=== PATIENT | female | born 1950 | race Caucasian/White ===

== ENCOUNTER 2020-09-19 07:15 | Day surgery (SDC) | payer MEDICARE, OTHER ==
[~2020-09-19 07:15] MED LIST: acetaZOLAMIDE 500 MG Cap.ER PO ONE
[2020-09-19] MEDS ORDERED: fentaNYL 100 MCG/2 ML SDV IV ONE (07:16)
[2020-09-19] MEDS ORDERED: Sodium Chloride 0.9% 10 ML Syringe IV ONE (07:16)
[2020-09-19] MEDS ORDERED: Lidocaine 2% 5 ML SDV INJECT ONE (07:16)
[2020-09-19] MEDS ORDERED: Midazolam 1 MG/ML 2 ML SDV IV ONE (07:16)
[2020-09-19] MEDS ORDERED: Sodium Chloride 0.9% 10 ML Syringe FLUSH PRN (07:30)
[2020-09-19] MEDS ORDERED: Lactated Ringers 1,000 ML IV PRN (07:30)
[2020-09-19] MEDS ORDERED: acetaZOLAMIDE 500 MG Cap.ER PO ONE (09:30)
[2020-09-19 09:54] VITALS: PULSE 58
[2020-09-19 09:55] VITALS: BP 111/52
--- NOTE | 2020-09-20 09:57 | OR ---
DATE OF OPERATION: 09/19/2020 SURGEON: Iris Teixeira MD PREOPERATIVE DIAGNOSIS: Visually significant cataract, right eye. POSTOPERATIVE DIAGNOSIS: Visually significant cataract, right eye. PROCEDURES PERFORMED: Phacoemulsification with intraocular lens placement, right eye. ASSISTANTS: None. ANESTHESIA: Local with sedation. COMPLICATIONS: None. BLOOD LOSS: None. IMPLANTS: Tito preloaded ACU0T0 20.0 diopter lens implanted. CDE: 2.60. DESCRIPTION OF PROCEDURE: After risks and benefits were reviewed with the patient, consent was obtained in the preoperative area, and the operative eye was marked with a surgical pen. In the preoperative area, a pledget was used to dilate the pupil consisting of a mixture of phenylephrine 10%, cyclopentolate 2%, moxifloxacin 0.5%, and bupivacaine 0.75%. The patient was taken to the operating room, where a time-out was performed, and the patient was placed under monitored anesthesia care. Topical tetracaine was used for anesthesia. The operative eye was prepped and draped for ophthalmic surgery, and the microscope was brought into position and focused. A paracentesis incision was made, followed by injection of preservative-free 1% lidocaine into the anterior chamber, followed by injection of Viscoat into the anterior chamber. A microkeratome blade was used to make a corneal limbal incision temporally. A cystotome was used to make the beginning of the capsulorrhexis, which was carried around 360 degrees in a curvilinear fashion using Utrata forceps. A Pinon cannula with BSS was used to hydrodissect and hydrodelineate the nucleus. The nucleus was removed in a divide and conquer manner using phacoemulsification. Irrigation and aspiration were used to remove the remaining cortical material. Provisc was used to inflate the capsular bag, and a pre-loaded Tito ACU0T0 diopter lens, serial number [id number] was injected into the capsular bag. A Sinskey hook was used to position and center the lens. Next, irrigation and aspiration was used to remove any remaining viscoelastic and cortical material from the anterior chamber. BSS on a cannula was used to inflate the anterior chamber and hydrate the wound. The wound was checked and found to be watertight. 1 mg of Moxifloxacin was injected into the anterior chamber. Drapes were removed and the eye was cleaned. A drop of brimonidine 0.2% and a drop of TobraDex was placed. The eye was shielded, and the patient was taken to the recovery room in stable condition. /[id number] TICO/DIAMOND
== END 2020-09-19 10:00 | disposition home or self-care (01) ==
LOC: FB.SDS 07:15
PROVIDERS: ATTEND Ophthalmology
DX: H25.813 Combined forms of age-related cataract, bilateral (principal); H35.3131 Nonexudative age-related macular degeneration, bilateral, early dry stage; H40.013 Open angle with borderline findings, low risk, bilateral; H04.123 Dry eye syndrome of bilateral lacrimal glands; H02.831 Dermatochalasis of right upper eyelid; H02.834 Dermatochalasis of left upper eyelid; R73.03 Prediabetes; J44.9 Chronic obstructive pulmonary disease, unspecified; I10 Essential (primary) hypertension; E78.5 Hyperlipidemia, unspecified; N32.81 Overactive bladder; Z88.8 Allergy status to other drugs, medicaments and biological substances
CPT/HCPCS: 00142; 66984; A9270; J2250; J3010; V2632

== ENCOUNTER 2020-10-03 08:02 | Day surgery (SDC) | payer MEDICARE, OTHER ==
[~2020-10-03 08:02] MED LIST changes: +Lactated Ringers 1,000 ML IV PRN; +Sodium Chloride 0.9% 10 ML Syringe FLUSH PRN; -acetaZOLAMIDE 500 MG Cap.ER PO ONE
[2020-10-03] MEDS ORDERED: Lidocaine 2% 5 ML SDV IV ONE (08:03)
[2020-10-03] MEDS ORDERED: fentaNYL 100 MCG/2 ML SDV IV ONE (08:03)
[2020-10-03] MEDS ORDERED: Midazolam 1 MG/ML 2 ML SDV IV ONE (08:03)
[2020-10-03] MEDS ORDERED: acetaZOLAMIDE 500 MG Cap.ER PO ONE (10:00)
[2020-10-03 10:20] VITALS: BP 98/50; PULSE 65
--- NOTE | 2020-10-03 16:41 | OR ---
DATE OF OPERATION: 10/03/2020 SURGEON: Iris Teixeira MD PREOPERATIVE DIAGNOSIS: Visually significant cataract, left eye. POSTOPERATIVE DIAGNOSIS: Visually significant cataract, left eye. PROCEDURES PERFORMED: Phacoemulsification with intraocular lens placement, left eye. ASSISTANTS: None. ANESTHESIA: Local with sedation. COMPLICATIONS: None. BLOOD LOSS: None. IMPLANTS: Tito ACU0T0 19.5 diopter lens implanted. CDE: 3.62. DESCRIPTION OF PROCEDURE: After risks and benefits were reviewed with the patient, consent was obtained in the preoperative area, and the operative eye was marked with a surgical pen. In the preoperative area, a pledget was used to dilate the pupil consisting of a mixture of phenylephrine 10%, cyclopentolate 2%, moxifloxacin 0.5%, and bupivacaine 0.75%. The patient was taken to the operating room, where a time-out was performed, and the patient was placed under monitored anesthesia care. Topical tetracaine was used for anesthesia. The operative eye was prepped and draped for ophthalmic surgery, and the microscope was brought into position and focused. A paracentesis incision was made, followed by injection of preservative-free 1% lidocaine into the anterior chamber, followed by injection of Viscoat into the anterior chamber. A microkeratome blade was used to make a corneal limbal incision temporally. A cystotome was used to make the beginning of the capsulorrhexis, which was carried around 360 degrees in a curvilinear fashion using Utrata forceps. A Pinon cannula with BSS was used to hydrodissect and hydrodelineate the nucleus. The nucleus was removed in a divide and conquer manner using phacoemulsification. Irrigation and aspiration were used to remove the remaining cortical material. Provisc was used to inflate the capsular bag, and a pre-loaded Tito ACU0T0 19.5 diopter lens, serial number [id number] was injected into the capsular bag. A Sinskey hook was used to position and center the lens. Next, irrigation and aspiration was used to remove any remaining viscoelastic and cortical material from the anterior chamber. BSS on a cannula was used to inflate the anterior chamber and hydrate the wound. The wound was checked and found to be watertight. 1 mg of Moxifloxacin was injected into the anterior chamber. Drapes were removed and the eye was cleaned. A drop of brimonidine 0.2% and a drop of TobraDex was placed. The eye was shielded, and the patient was taken to the recovery room in stable condition. /[id number] TICO/DIAMOND
== END 2020-10-03 10:45 | disposition home or self-care (01) ==
LOC: FB.SDS 08:02
PROVIDERS: ATTEND Ophthalmology
DX: H25.813 Combined forms of age-related cataract, bilateral (principal); H35.3131 Nonexudative age-related macular degeneration, bilateral, early dry stage; H40.013 Open angle with borderline findings, low risk, bilateral; H04.123 Dry eye syndrome of bilateral lacrimal glands; H02.831 Dermatochalasis of right upper eyelid; H02.834 Dermatochalasis of left upper eyelid; J44.9 Chronic obstructive pulmonary disease, unspecified; R73.03 Prediabetes; F17.210 Nicotine dependence, cigarettes, uncomplicated; I10 Essential (primary) hypertension; E87.1 Hypo-osmolality and hyponatremia; N32.81 Overactive bladder; Z79.899 Other long term (current) drug therapy; Z88.8 Allergy status to other drugs, medicaments and biological substances
CPT/HCPCS: 00142-QZ; A9270-GY; J2250; J3010; V2632

== ENCOUNTER 2021-03-28 12:19 | Inpatient (IN) | payer MEDICARE, OTHER ==
[2021-03-28] MEDS ORDERED: Albuterol/Ipratropium 3.0-0.5 MG/3 ML Neb Soln NEB PRN (14:28)
[2021-03-28] MEDS: Acetaminophen 325 MG Tab PO PRN ×2 (14:59→21:33)
[2021-03-28] MEDS ORDERED: Albuterol 8 GM Inhaler *PTOM INH PRN (15:07)
[2021-03-28] MEDS: Levofloxacin/Dextrose 5%-Water 750 MG in Premix Bag 1 BAG IV SCH (15:56)
[2021-03-28] MEDS: Enoxaparin 40 MG/0.4 ML Syringe SUBCUT SCH (15:57)
--- NOTE | 2021-03-28 16:08 | PCM.HP.2 ---
H&P History of Present Illness - General Date of Service: 03/28/21 Admit Problem/Dx: Admission Diagnosis/Problem Admission Diagnosis/Problem Pneumonia Source of Information: Patient, Provider History Limitations: Reports: No Limitations - History of Present Illness Initial Comments - Free Text/Narative: Marleen presented to [facility] today with Dr Orozco for follow up recent discharge from [facility](03[facility]16[facility]03[facility]24) after being admitted to [facility](03/10-03/16) for UTI. She was discharged on Friday. When she presented to clinic today she had 101.2F, chills, shortness of breath. History of COPD, on continuous oxygen at home at 2L. Found in clinic to have left upper lobe pneumonia. Covid negative. WBC 27.4, Hgb 10.5. Na 129, K 4.1, Cl 90, CO2 28, BUN 10, Cr 0.7, Glucose 120; UA negative. Urine culture pending. Productive cough with green sputum was clear, uses Acapella device regularly at home. She states chills started today, doesn't have thermometer at home so didn't know she had a fever. Denies any nausea, vomiting, diarrhea. No dysuria, hematuria or frequency. States she has had decreased urination. Doesn't remember when she last had a bowel movement. She has some bruising from blood draws but no other rashes or wounds. CODE STATUS: DNR/DNI. Allergies from clinic aspirin(abdominal pain), patient stated she would like taken off her list as she takes an aspirin 81 mg daily and has not had issues with this. - Related Data Allergies/Adverse Reactions: Allergies Allergy/AdvReac Type Severity Reaction Status Date / Time No Known Allergies Allergy Verified 03/28/21 14:28 Home Medications: Home Meds Simvastatin [Zocor] 20 mg PO BEDTIME 12/13/15 [History] Albuterol [Ventolin HFA] 2 puff IH Q4H PRN 03/28/21 [History] Albuterol/Ipratropium [DuoNeb 3.0-0.5 MG/3 ML] 3 ml IH QID 03/28/21 [History] Aspirin [Halfprin] 81 mg PO DAILY 03/28/21 [History] Budesonide [Pulmicort] 0.5 mg IH BID 03/28/21 [History] Calcium Carbonate/Vitamin D3 [Calcium 600-Vit D3 200 Tablet] 1 tab PO DAILY 03/28/21 [History] Carboxymethylcellulose Sodium [Refresh Plus 0.5%] 1 drop EYEBOTH BID 03/28/21 [History] Metoprolol Succinate 50 mg PO DAILY 03/28/21 [History] Multivitamin [Daily Karla] 1 tab PO DAILY 03/28/21 [History] [place]-3 Fatty Acids/Fish Oil [Fish Oil 1,000 mg Capsule] 1 cap PO DAILY 03/28/21 [History] Revefenacin [Yupelri] 175 mcg IH BID 03/28/21 [History] lisinopriL [Lisinopril] 10 mg PO DAILY 03/28/21 [History] Past Medical History HEENT History: Reports: Glaucoma, Impaired Vision, Macular Degeneration, Other (See Below) Other HEENT History: CORNEAL DYSTROPHY, NUCLEAR SCLEROSIS, TONGUE SURGERY FOR TUMOR, NON MALIGNANT. Cardiovascular History: Reports: High Cholesterol, Hypertension Respiratory History: Reports: COPD, SOB, Other (See Below) Other Respiratory History: FREQUENT COUGH WITH SPUTUM PRODUCTION Gastrointestinal History: Reports: Colon Polyp Genitourinary History: Reports: Other (See Below) Other Genitourinary History: PT VOICED PROBLEMS WITH STRESS INCONT. AND WEARS PADS. GENERAL FARMWORK[employer] History: Reports: , Other (See Below) Other OB/BYN History: POST MENOPAUSAL; I PARA I Musculoskeletal History: Reports: Osteoarthritis Other Musculoskeletal History: torn right rotator cuff Neurological History: Reports: None Psychiatric History: Reports: None Other Psychiatric History: PATIENT STATES DOES NOT DRINK ANYMORE. UNABLE TO GIVE DATES WHEN QUIT. Endocrine/Metabolic History: Reports: Other (See Below) Other Endocrine/Metabolic History: HEPATITIS Hematologic History: Reports: Other (See Below) Other Hematologic History: HEPATITIS Immunologic History: Reports: None Oncologic (Cancer) History: Reports: None Dermatologic History: Reports: None - Infectious Disease History Infectious Disease History: Reports: Chicken Pox, Measles, Mumps - Past Surgical History Head Surgeries/Procedures: Reports: None HEENT Surgical History: Reports: Cataract Surgery Cardiovascular Surgical History: Reports: None Respiratory Surgical History: Reports: None GI Surgical History: Reports: Colonoscopy Other GI Surgeries/Procedures: TREATED FOR BILIARY JAUNDICE; RT ALCOHOL ABUSE ? 2012? Female Surgical History: Reports: None Endocrine Surgical History: Reports: None Neurological Surgical History: Reports: None Oncologic Surgical History: Reports: None Dermatological Surgical History: Reports: None Social & Family History - Family History Family Medical History: No Pertinent Family History - Tobacco Use Tobacco Use Status *Q: Former Tobacco User Used Tobacco, but Quit: Yes Month/Year Tobacco Last Used: 1979 Second Hand Smoke Exposure: No - Caffeine Use Caffeine Use: Reports: Soda - Recreational Drug Use Recreational Drug Use: No H&P Review of Systems - Review of Systems: Review Of Systems: Comprehensive ROS is negative, except as noted in HPI. Exam - Exam Exam: See Below - Vital Signs Vital Signs: Last Vital Signs Temp 100.4 F 03/28/21 15:29 Pulse Resp BP Pulse Ox Weight: 108 lb 8 oz - Exam Quality Assessment: Supplemental Oxygen (2L) General: Alert, Oriented, Cooperative HEENT: PERRLA, Conjunctiva Clear, EOMI, Hearing Intact, Mucosa Moist & [place] Neck: Trachea Midline Lungs: Decreased Breath Sounds (throughout). No: Normal Respiratory Effort (increased), Crackles, Rhonchi, Wheezing Cardiovascular: Regular Rate, Regular Rhythm GI/Abdominal Exam: Normal Bowel Sounds, Soft, Non-Tender, No Distention (Female) Exam: Deferred Rectal (Female) Exam: Deferred Extremities: No Pedal Edema, Normal Capillary Refill Peripheral Pulses: 2+: Radial (L), Radial (R), Posterior Tibial (L), Posterior Tibial (R), Dorsalis Pedis (L), Dorsalis Pedis (R) Skin: Ecchymosis (bilateral forearms) Neurological: Cranial Nerves Intact, Normal Speech, Normal Tone - Patient Data Lab Results Last 24 hrs: Laboratory Results - last 24 hr 03/28/21 Range/Units 14:50 Lactic Acid 0.9 (0.4-2.0) mmol/L Imaging Impressions Last 24 hrs: Chest x-ray(in clinic) showed left viry-hilar infiltrate, chronic emphysematous changes. EKG(in clinic): Sinus tachycardia with frequent PVCs, rate 101 bpm. Sepsis Event Note - Focused Exam Vital Signs: Vital Signs Temp 03/28/21 15:29 100.4 F 03/28/21 14:59 101 F H *Q Meaningful Use (ADM) - VTE Risk Assess *Q Each Risk Factor Represents 1 Point: Serious lung disease including pneumonia, Abnormal Pulmonary Function (COPD) Total Score 1 Point Risk Factors: 2 Each Risk Factor Represents 2 Points: Age 60 - 74 Years Total Score 2 Point Risk Factors: 2 Each Risk Factor Represents 3 Points: None Total Score 3 Point Risk Factors: 0 Each Risk Factor Represents 5 Points: None Total Score 5 Point Risk Factors: 0 Venous Thromboembolism Risk Factor Score *Q: 4 - Problem List (1) Hospital-acquired pneumonia SNOMED Code(s): 751980839 ICD Code: J18.9 - PNEUMONIA, UNSPECIFIED ORGANISM; Y95 - NOSOCOMIAL CONDITION Status: Acute Current Visit: Yes Problem Details: Recent hospitalization/rehab stay 03/10-03/24 (2) Fever SNOMED Code(s): 938318216 ICD Code: R50.9 - FEVER, UNSPECIFIED Status: Acute Current Visit: Yes (3) Hyponatremia SNOMED Code(s): 64061055 ICD Code: E87.1 - HYPO-OSMOLALITY AND HYPONATREMIA Status: Acute Current Visit: Yes (4) COPD (chronic obstructive pulmonary disease) SNOMED Code(s): 05244840 ICD Code: J44.9 - CHRONIC OBSTRUCTIVE PULMONARY DISEASE, UNSPECIFIED Status: Chronic Current Visit: Yes Problem Details: on home O2 at 2L continuous (5) Hypertension SNOMED Code(s): 07100905 ICD Code: I10 - ESSENTIAL (PRIMARY) HYPERTENSION Status: Chronic Current Visit: Yes (6) Dyslipidemia SNOMED Code(s): 490444295 ICD Code: E78.5 - HYPERLIPIDEMIA, UNSPECIFIED Status: Chronic Current Visit: Yes Problem List Initiated/Reviewed/Updated: Yes Orders Last 24hrs: Active Orders 24 hr Category Date Time Status Patient Status [ADT] Routine ADT 03/28/21 14:28 Active Communication Order [RC] PER UNIT ROUTINE Care 03/28/21 14:28 Active Oxygen Therapy [RC] PRN Care 03/28/21 14:28 Active RT Aerosol Therapy [RC] ASDIRECTED Care 03/28/21 15:08 Active RT Aerosol Therapy [RC] ASDIRECTED Care 03/28/21 15:08 Active RT Post Treatment Assessment [RC] Click to Edit Care 03/28/21 15:08 Active Up With Assistance [RC] ASDIRECTED Care 03/28/21 14:28 Active Up to Chair [RC] ASDIRECTED Care 03/28/21 14:28 Active VTE/DVT Education [RC] Per Unit Routine Care 03/28/21 14:28 Active Vital Signs [RC] Q4H Care 03/28/21 14:28 Active Regular Diet [DIET] Diet 03/28/21 Dinner Active BASIC METABOLIC PANEL,BMP [CHEM] Routine Lab 03/29/21 06:00 Ordered CBC WITH AUTO DIFF [HEME] Routine Lab 03/29/21 06:00 Ordered CULTURE BLOOD [BC] Urgent Lab 03/28/21 14:50 Received CULTURE BLOOD [BC] Urgent Lab 03/28/21 14:55 Received CULTURE SPUTUM + SMEAR [RM] Stat Lab 03/28/21 15:25 Received INFLUENZA A+B AG SCREEN [RM] Urgent Lab 03/28/21 14:28 Ordered Acetaminophen [TylenoL] Med 03/28/21 14:28 Active 650 mg PO Q4H PRN Albuterol [Ventolin HFA] Med 03/28/21 15:30 Active 0 gm INH Q4H PRN Albuterol/Ipratropium [DuoNeb 3.0-0.5 MG/3 ML] Med 03/28/21 17:00 Active 3 ml NEB QID Budesonide [Pulmicort] Med 03/28/21 21:00 Active 0.5 mg NEB BID Carboxymethylcellulose Sodium [Refresh Plus 0.5%] Med 03/28/21 21:00 Active 1 drop EYEBOTH BID Enoxaparin [Lovenox] Med 03/28/21 16:00 Active 40 mg SUBCUT Q24H Ibuprofen [Motrin] Med 03/28/21 14:28 Active 400 mg PO Q6H PRN Levofloxacin/Dextrose 5%-Water [Levaquin in D5W 750 MG/ Med 03/28/21 14:30 Active 150 ML] 750 mg Premix Bag 1 bag IV Q24H Metoprolol Succinate [Toprol XL] Med 03/29/21 09:00 Active 50 mg PO DAILY Revefenacin [Yupelri] Med 03/28/21 21:00 Pending 175 mcg IH BID Simvastatin [Zocor] Med 03/28/21 21:00 Active 20 mg PO BEDTIME Sodium Chloride 0.9% [Normal Saline] 1,000 ml Med 03/28/21 15:15 Active IV ASDIRECTED Sodium Chloride 0.9% [Saline Flush] Med 03/28/21 14:28 Active 10 ml FLUSH ASDIRECTED PRN lisinopriL [Prinivil] Med 03/29/21 09:00 Active 10 mg PO DAILY Antiembolic Hose [OM.PC] Per Unit Routine Oth 03/28/21 14:29 Ordered Blood Culture x2 Reflex Set [OM.PC] Urgent Oth 03/28/21 14:28 Ordered Isolation [COMM] Routine Oth 03/28/21 14:34 Ordered Saline Lock Insert [OM.PC] Routine Oth 03/28/21 14:28 Ordered Resuscitation Status Routine Resus Stat 03/28/21 14:28 Ordered Medication Orders Acetaminophen (Acetaminophen 325 Mg Tab) 650 mg PO Q4H PRN PRN Reason: Pain (Mild 1-3)/fever Last Admin: 03/28/21 14:59 Dose: 650 mg Documented by: JANETH Albuterol (Albuterol 8 Gm Inhaler *Ptom*) 0 gm INH Q4H PRN PRN Reason: Shortness of Breath Albuterol/Ipratropium (Albuterol/Ipratropium 3.0-0.5 Mg/3 Ml Neb Soln) 3 ml NEB QID [place] Budesonide (Budesonide 0.5 Mg/2 Ml Neb Susp) 0.5 mg NEB BID [place] Enoxaparin Sodium (Enoxaparin 40 Mg/0.4 Ml Syringe) 40 mg SUBCUT Q24H [facility] Last Admin: 03/28/21 15:57 Dose: 40 mg Documented by: JANETH Levofloxacin/Dextrose 750 mg/ (Premix) 150 mls @ 100 mls/hr IV Q24H [facility] Last Admin: 03/28/21 15:56 Dose: 100 mls/hr Documented by: JANETH Sodium Chloride (Normal Saline) 1,000 mls @ 75 mls/hr IV ASDIRECTED [place] Ibuprofen (Ibuprofen 400 Mg Tab) 400 mg PO Q6H PRN PRN Reason: Pain/Fever Lisinopril (Lisinopril 10 Mg Tab) 10 mg PO DAILY [facility] Metoprolol Succinate (Metoprolol Succinate 50 Mg Tab.Er) 50 mg PO DAILY [facility] Refresh Plus 0.5% 30 (Each *Ptom*) 1 drop EYEBOTH BID [facility] Non-Formulary Medication (Revefenacin [Yupelri]) 175 mcg IH BID [facility] Simvastatin (Simvastatin 20 Mg Tab) 20 mg PO BEDTIME [place] Sodium Chloride (Sodium Chloride 0.9% 10 Ml Syringe) 10 ml FLUSH ASDIRECTED PRN PRN Reason: Keep Vein Open Assessment/Plan Comment:: 1. Direct admission for hospital acquired left upper lobe pneumonia, hyponatremia, fever. 2. HAP/fever: WBC 27.4, BC x 2, Lactic acid 0.9. Levofloxacin 750 mg IV q24h. Continue home nebs & inhalers. Continue Acapella q1hwa, patient brought her home one with her. Repeat labs tomorrow. Oxygen by nc at 2L continuous. Sputum culture. Tylenol & Ibuprofen as needed fever. 3. Hyponatremia: NS at 75 ml/hr, repeat BMP tomorrow. 4. Diet: Regular. 5. Activity: as tolerated, up to chair tid. 6. DVT prophylaxis: Lovenox 40 mg sq daily. Teds BLE 7. CODE STATUS: DNR/DNI. 8. Disposition: anticipate 48-72 hours of IV antibiotics, switch to oral prior to discharge. - Mortality Measure Prognosis:: Poor
[2021-03-28] MEDS: Albuterol/Ipratropium 3.0-0.5 MG/3 ML Neb Soln NEB SCH ×2 (16:10→20:50)
[2021-03-28] MEDS: Sodium Chloride 0.9% 1,000 ML IV SCH (17:52)
[2021-03-28] MEDS ORDERED: Lidocaine 4% 1 each Patch TOP PRN (20:01)
[2021-03-28] MEDS: REFRESH PLUS EYEBOTH SCH (20:49)
[2021-03-28] MEDS: Simvastatin 20 MG Tab PO SCH (20:50)
[2021-03-28] MEDS: Budesonide 0.5 MG/2 ML Neb Susp NEB SCH (20:50)
[2021-03-29] MEDS: Ibuprofen 400 MG Tab PO PRN ×2 (05:39→20:51)
[2021-03-29] MEDS: Sodium Chloride 0.9% 1,000 ML IV SCH (07:44)
[2021-03-29] MEDS: REFRESH PLUS EYEBOTH SCH ×2 (08:22→20:43)
[2021-03-29] MEDS: Lisinopril 10 MG Tab PO SCH (08:22)
[2021-03-29] MEDS: Albuterol/Ipratropium 3.0-0.5 MG/3 ML Neb Soln NEB SCH ×4 (08:22→20:43)
[2021-03-29] MEDS: Budesonide 0.5 MG/2 ML Neb Susp NEB SCH ×2 (08:23→20:43)
[2021-03-29] MEDS: Metoprolol Succinate 50 MG Tab.ER PO SCH (08:23)
[2021-03-29] MEDS ORDERED: tiZANidine 4 MG Tab PO PRN (13:21)
[2021-03-29] MEDS: Levofloxacin/Dextrose 5%-Water 750 MG in Premix Bag 1 BAG IV SCH (14:39)
--- NOTE | 2021-03-29 15:20 | PCM.PN ---
- General Info Date of Service: 03/29/21 Subjective Update: Having neb treatment this morning. No fevers today, had fevers on admission. Having productive cough, sputum culture sent. Blood cultures pending. Urine culture no growth. - Patient Data Vitals - Most Recent: Last Vital Signs Temp 98.8 F 03/29/21 08:21 Pulse 96 03/29/21 08:23 Resp 22 H 03/29/21 08:21 BP 104/44 L 03/29/21 08:23 Pulse Ox 97 03/29/21 08:21 Weight - Most Recent: 108 lb 8 oz I&O - Last 24 Hours: Intake & Output 03/29/21 03/29/21 03/29/21 06:59 14:59 22:59 Intake Total 448 Balance 448 Lab Results Last 24 Hours: Laboratory Results - last 24 hr 03/28/21 03/29/21 03/29/21 Range/Units 14:50 06:35 06:35 WBC 21.2 H (3.0-10.3) x10-3/uL RBC 2.99 L (3.60-5.20) x10(6)uL Hgb 8.6 L (11.4-15.5) g/dL Hct 26.5 L (34.2-48.2) % MCV 88.7 (76.7-100.5) fL MCH 28.8 (23.9-33.9) pg MCHC 32.4 (31.9-34.8) g/dL RDW 14.5 (12.3-16.5) % Plt Count 169 (151-488) x10(3)uL MPV 7.9 (7.1-12.4) fL Add Manual Diff Yes Neutrophils % (Manual) 90 H (46-82) % Band Neutrophils % 5 (0-6) % Lymphocytes % (Manual) 2 L (13-37) % Monocytes % (Manual) 1 L (4-12) % Metamyelocytes % 1 H (0-0) % Myelocytes % 1 H (0-0) % Toxic Granulation Moderate H (NOT SEEN) Sodium 129 L (135-145) mmol/L Potassium 4.1 (3.5-5.3) mmol/L Chloride 95 L (100-110) mmol/L Carbon Dioxide 25 (21-32) mmol/L BUN 10 (7-18) mg/dL Creatinine 0.8 (0.55-1.02) mg/dL Est Cr Clr Drug Dosing 52.29 mL/min Estimated GFR (MDRD) > 60 (>60) BUN/Creatinine Ratio 12.5 (9-20) Glucose 129 H (80-116) mg/dL Lactic Acid 0.9 (0.4-2.0) mmol/L Calcium 7.4 L (8.6-10.2) mg/dL Ramy Results Last 24 Hours: Microbiology 03/28/21 14:50 Aerobic Blood Culture - Preliminary Blood - Venous NO GROWTH AFTER 1 DAY Anaerobic Blood Culture - Preliminary NO GROWTH AFTER 1 DAY 03/28/21 14:55 Aerobic Blood Culture - Preliminary Blood - Venous - Lab Draw NO GROWTH AFTER 1 DAY Anaerobic Blood Culture - Preliminary NO GROWTH AFTER 1 DAY 03/28/21 17:45 Influenza Type A Antigen Screen - Final Nasopharyngeal Swab NEGATIVE INFLUENZA A VIRUS AG REFERENCE RANGE: NEGATIVE Influenza Type B Antigen Screen - Final NEGATIVE INFLUENZA B VIRUS AG REFERENCE RANGE: NEGATIVE Med Orders - Current: Current Medications Acetaminophen (Acetaminophen 325 Mg Tab) 650 mg PO Q4H PRN PRN Reason: Pain (Mild 1-3)/fever Last Admin: 03/28/21 21:33 Dose: 650 mg Documented by: Albuterol (Albuterol 8 Gm Inhaler *Ptom*) 0 gm INH Q4H PRN PRN Reason: Shortness of Breath Albuterol/Ipratropium (Albuterol/Ipratropium 3.0-0.5 Mg/3 Ml Neb Soln) 3 ml NEB QID [facility] Last Admin: 03/29/21 12:59 Dose: 3 ml Documented by: Budesonide (Budesonide 0.5 Mg/2 Ml Neb Susp) 0.5 mg NEB BID [facility] Last Admin: 03/29/21 08:23 Dose: 0.5 mg Documented by: Enoxaparin Sodium (Enoxaparin 40 Mg/0.4 Ml Syringe) 40 mg SUBCUT Q24H [facility] Last Admin: 03/28/21 15:57 Dose: 40 mg Documented by: Levofloxacin/Dextrose 750 mg/ (Premix) 150 mls @ 100 mls/hr IV Q24H [facility] Last Admin: 03/29/21 14:39 Dose: 100 mls/hr Documented by: Sodium Chloride (Normal Saline) 1,000 mls @ 75 mls/hr IV ASDIRECTED [facility] Last Admin: 03/29/21 07:44 Dose: 75 mls/hr Documented by: Ibuprofen (Ibuprofen 400 Mg Tab) 400 mg PO Q6H PRN PRN Reason: Pain/Fever Last Admin: 03/29/21 05:39 Dose: 400 mg Documented by: Lidocaine (Lidocaine 4% 1 Each Patch) 0 each TOP DAILY PRN PRN Reason: Pain Last Admin: 03/28/21 21:10 Dose: 1 each Documented by: Lisinopril (Lisinopril 10 Mg Tab) 10 mg PO DAILY [facility] Last Admin: 03/29/21 08:22 Dose: 10 mg Documented by: Metoprolol Succinate (Metoprolol Succinate 50 Mg Tab.Er) 50 mg PO DAILY [facility] Last Admin: 03/29/21 08:23 Dose: 50 mg Documented by: Refresh Plus 0.5% 30 (Each *Ptom*) 1 drop EYEBOTH BID [facility] Last Admin: 03/29/21 08:22 Dose: 1 drop Documented by: (Revefenacin [ Yupelri] 175 Mcg)* Pt Own Med* 0 each INH DAILY [facility] Last Admin: 03/29/21 08:26 Dose: 1 each Documented by: Simvastatin (Simvastatin 20 Mg Tab) 20 mg PO BEDTIME [facility] Last Admin: 03/28/21 20:50 Dose: 20 mg Documented by: Sodium Chloride (Sodium Chloride 0.9% 10 Ml Syringe) 10 ml FLUSH ASDIRECTED PRN PRN Reason: Keep Vein Open Tizanidine HCl (Tizanidine 4 Mg Tab) 4 mg PO Q6H PRN PRN Reason: Muscle Spasm - Painful Last Admin: 03/29/21 14:45 Dose: 4 mg Documented by: Discontinued Medications Albuterol (Albuterol 8 Gm Inhaler *Ptom*) 0 gm INH Q4H PRN PRN Reason: Shortness of Breath Albuterol/Ipratropium (Albuterol/Ipratropium 3.0-0.5 Mg/3 Ml Neb Soln) 3 ml NEB Q4H PRN PRN Reason: Shortness Of Breath/wheezing Non-Formulary Medication (Revefenacin [Yupelri]) 175 mcg IH BID [facility] (Revefenacin [ Yupelri] 175 Mcg)* Pt Own Med* 0 each INH ONETIME ONE Stop: 03/28/21 21:31 Last Admin: 03/28/21 21:11 Dose: 1 each Documented by: - Exam Quality Assessment: Supplemental Oxygen General: Alert, Oriented, Cooperative, No Acute Distress Lungs: Normal Respiratory Effort, Decreased Breath Sounds (throughout), Wheezing (bibasilar). No: Crackles, Rales, Rhonchi Cardiovascular: Regular Rate, Regular Rhythm GI/Abdominal Exam: Normal Bowel Sounds, Soft, Non-Tender, No Distention Extremities: No Pedal Edema - Patient Data Lab Results Last 24 hrs: Laboratory Results - last 24 hr 03/28/21 03/29/21 03/29/21 Range/Units 14:50 06:35 06:35 WBC 21.2 H (3.0-10.3) x10-3/uL RBC 2.99 L (3.60-5.20) x10(6)uL Hgb 8.6 L (11.4-15.5) g/dL Hct 26.5 L (34.2-48.2) % MCV 88.7 (76.7-100.5) fL MCH 28.8 (23.9-33.9) pg MCHC 32.4 (31.9-34.8) g/dL RDW 14.5 (12.3-16.5) % Plt Count 169 (151-488) x10(3)uL MPV 7.9 (7.1-12.4) fL Add Manual Diff Yes Neutrophils % (Manual) 90 H (46-82) % Band Neutrophils % 5 (0-6) % Lymphocytes % (Manual) 2 L (13-37) % Monocytes % (Manual) 1 L (4-12) % Metamyelocytes % 1 H (0-0) % Myelocytes % 1 H (0-0) % Toxic Granulation Moderate H (NOT SEEN) Sodium 129 L (135-145) mmol/L Potassium 4.1 (3.5-5.3) mmol/L Chloride 95 L (100-110) mmol/L Carbon Dioxide 25 (21-32) mmol/L BUN 10 (7-18) mg/dL Creatinine 0.8 (0.55-1.02) mg/dL Est Cr Clr Drug Dosing 52.29 mL/min Estimated GFR (MDRD) > 60 (>60) BUN/Creatinine Ratio 12.5 (9-20) Glucose 129 H (80-116) mg/dL Lactic Acid 0.9 (0.4-2.0) mmol/L Calcium 7.4 L (8.6-10.2) mg/dL Result Diagrams: 03/29/21 06:35 03/29/21 06:35 Ramy Results Last 24 hrs: Microbiology 03/28/21 14:50 Aerobic Blood Culture - Preliminary Blood - Venous NO GROWTH AFTER 1 DAY Anaerobic Blood Culture - Preliminary NO GROWTH AFTER 1 DAY 03/28/21 14:55 Aerobic Blood Culture - Preliminary Blood - Venous - Lab Draw NO GROWTH AFTER 1 DAY Anaerobic Blood Culture - Preliminary NO GROWTH AFTER 1 DAY 03/28/21 17:45 Influenza Type A Antigen Screen - Final Nasopharyngeal Swab NEGATIVE INFLUENZA A VIRUS AG REFERENCE RANGE: NEGATIVE Influenza Type B Antigen Screen - Final NEGATIVE INFLUENZA B VIRUS AG REFERENCE RANGE: NEGATIVE Sepsis Event Note - Evaluation Sepsis Screening Result: No Definite Risk - Focused Exam Vital Signs: Vital Signs Temp Pulse Pulse Resp BP BP Pulse Ox 03/29/21 08:23 96 104/44 L 03/29/21 08:22 104/44 L 03/29/21 08:21 98.8 F 96 22 H 104/44 L 97 03/29/21 04:00 99.2 F 83 20 117/61 96 - Problem List & Annotations (1) Hospital-acquired pneumonia SNOMED Code(s): 045407071 Code(s): J18.9 - PNEUMONIA, UNSPECIFIED ORGANISM; Y95 - NOSOCOMIAL CONDITION Status: Acute Current Visit: Yes Annotation/Comment:: Recent hospitali zation/rehab stay 03/10-03/24 (2) Fever SNOMED Code(s): 877952757 Code(s): R50.9 - FEVER, UNSPECIFIED Status: Resolved Current Visit: Yes (3) Hyponatremia SNOMED Code(s): 36991247 Code(s): E87.1 - HYPO-OSMOLALITY AND HYPONATREMIA Status: Acute Current Visit: Yes Annotation/Comment:: stable at 129. (4) COPD (chronic obstructive pulmonary disease) SNOMED Code(s): 00400703 Code(s): J44.9 - CHRONIC OBSTRUCTIVE PULMONARY DISEASE, UNSPECIFIED Status: Chronic Current Visit: Yes Annotation/Comment:: on home O2 at 2L continuous (5) Hypertension SNOMED Code(s): 76602744 Code(s): I10 - ESSENTIAL (PRIMARY) HYPERTENSION Status: Chronic Current Visit: Yes (6) Dyslipidemia SNOMED Code(s): 624827149 Code(s): E78.5 - HYPERLIPIDEMIA, UNSPECIFIED Status: Chronic Current Visit: Yes - Problem List Review Problem List Initiated/Reviewed/Updated: Yes - My Orders Last 24 Hours: My Active Orders 03/28/21 14:28 Patient Status [ADT] Routine Communication Order [RC] PER UNIT ROUTINE Oxygen Therapy [RC] PRN Up to Chair [RC] ASDIRECTED VTE/DVT Education [RC] Per Unit Routine Vital Signs [RC] Q4H Acetaminophen [TylenoL] 650 mg PO Q4H PRN Ibuprofen [Motrin] 400 mg PO Q6H PRN Sodium Chloride 0.9% [Saline Flush] 10 ml FLUSH ASDIRECTED PRN Blood Culture x2 Reflex Set [OM.PC] Urgent Saline Lock Insert [OM.PC] Routine Resuscitation Status Routine 03/28/21 14:29 Antiembolic Hose [OM.PC] Per Unit Routine 03/28/21 14:30 Levofloxacin/Dextrose 5%-Water [Levaquin in D5W 750 MG/150 ML] 750 mg Premix Bag 1 bag IV Q24H 03/28/21 14:34 Isolation [COMM] Routine 03/28/21 14:50 CULTURE BLOOD [BC] Urgent 03/28/21 14:55 CULTURE BLOOD [BC] Urgent 03/28/21 15:08 RT Aerosol Therapy [RC] ASDIRECTED 03/28/21 15:15 Sodium Chloride 0.9% [Normal Saline] 1,000 ml IV ASDIRECTED 03/28/21 15:25 CULTURE SPUTUM + SMEAR [RM] Stat 03/28/21 15:30 Albuterol [Ventolin HFA] 0 gm INH Q4H PRN 03/28/21 16:00 Enoxaparin [Lovenox] 40 mg SUBCUT Q24H 03/28/21 Dinner Regular Diet [DIET] 03/28/21 16:22 Communication Order [RC] Q1HWA 03/28/21 16:24 Up ad Deb [RC] ASDIRECTED 03/28/21 17:00 Albuterol/Ipratropium [DuoNeb 3.0-0.5 MG/3 ML] 3 ml NEB QID 03/28/21 20:01 Lidocaine 4% [Aspercreme 4%] 0 each TOP DAILY PRN 03/28/21 21:00 Budesonide [Pulmicort] 0.5 mg NEB BID Carboxymethylcellulose Sodium [Refresh Plus 0.5%] 1 drop EYEBOTH BID Simvastatin [Zocor] 20 mg PO BEDTIME 03/29/21 09:00 Metoprolol Succinate [Toprol XL] 50 mg PO DAILY Patient's Own Medication [Ptom] 0 each INH DAILY lisinopriL [Prinivil] 10 mg PO DAILY 03/29/21 13:21 tiZANidine [Zanaflex] 4 mg PO Q6H PRN - Plan Plan:: 1. HAP/fever: WBC 21.2, BC pending. Levofloxacin 750 mg IV q24h day 2. Continue home nebs & inhalers. Continue Acapella q1hwa, patient brought her home one with her. Repeat labs tomorrow. Oxygen by ne at 2L continuous. Sputum culture grew gram negative bacilli. Tylenol & Ibuprofen as needed fever. 2. Hyponatremia: 129, states she drinks a lot of water. Will saline lock, repeat BMP tomorrow. 3. Neck pain/spasm: Tizanidine 4 mg as needed. Lidocaine patches as needed.
[2021-03-29] MEDS: Enoxaparin 40 MG/0.4 ML Syringe SUBCUT SCH (17:00)
[2021-03-29] MEDS: Simvastatin 20 MG Tab PO SCH (20:43)
[2021-03-30] MEDS: Budesonide 0.5 MG/2 ML Neb Susp NEB SCH ×2 (09:25→20:12)
[2021-03-30] MEDS: Acetaminophen 325 MG Tab PO PRN (09:26)
[2021-03-30] MEDS: Ibuprofen 400 MG Tab PO PRN ×2 (09:26→20:12)
[2021-03-30] MEDS: Albuterol/Ipratropium 3.0-0.5 MG/3 ML Neb Soln NEB SCH ×4 (09:35→20:12)
[2021-03-30] MEDS: Lisinopril 10 MG Tab PO SCH (09:35)
[2021-03-30] MEDS: REFRESH PLUS EYEBOTH SCH ×2 (09:36→20:12)
[2021-03-30] MEDS: Metoprolol Succinate 50 MG Tab.ER PO SCH (09:36)
[2021-03-30] MEDS: guaiFENesin 600 MG Tab.ER PO SCH ×2 (10:42→20:12)
[2021-03-30] MEDS: predniSONE 20 MG Tab PO SCH (10:43)
--- NOTE | 2021-03-30 13:09 | PCM.PN ---
- General Info Date of Service: 03/30/21 Subjective Update: Marleen is having some chest soreness from coughing so much, getting a lot of sputum up. Chilled today, temp 100.5F. Eating and drinking well. BM, formed. Sputum culture growing gram negative bacilli. - Patient Data Vitals - Most Recent: Last Vital Signs Temp 99.8 F 03/30/21 10:26 Pulse 95 03/30/21 09:36 Resp 18 03/30/21 05:45 BP 152/70 H 03/30/21 09:36 Pulse Ox 98 03/30/21 05:45 Weight - Most Recent: 108 lb 8 oz Lab Results Last 24 Hours: Laboratory Results - last 24 hr 03/30/21 03/30/21 Range/Units 08:30 08:30 WBC 15.5 H (3.0-10.3) x10-3/uL RBC 3.28 L (3.60-5.20) x10(6)uL Hgb 9.6 L (11.4-15.5) g/dL Hct 28.9 L (34.2-48.2) % MCV 88.3 (76.7-100.5) fL MCH 29.2 (23.9-33.9) pg MCHC 33.1 (31.9-34.8) g/dL RDW 14.5 (12.3-16.5) % Plt Count 201 (151-488) x10(3)uL MPV 7.9 (7.1-12.4) fL Add Manual Diff Yes Neutrophils % (Manual) 86 H (46-82) % Lymphocytes % (Manual) 7 L (13-37) % Monocytes % (Manual) 7 (4-12) % Toxic Granulation Few H (NOT SEEN) Sodium 131 L (135-145) mmol/L Potassium 4.3 (3.5-5.3) mmol/L Chloride 97 L (100-110) mmol/L Carbon Dioxide 28 (21-32) mmol/L BUN 7 (7-18) mg/dL Creatinine 0.9 (0.55-1.02) mg/dL Est Cr Clr Drug Dosing 46.48 mL/min Estimated GFR (MDRD) > 60 (>60) BUN/Creatinine Ratio 7.8 L (9-20) Glucose 129 H (80-116) mg/dL Calcium 7.8 L (8.6-10.2) mg/dL Ramy Results Last 24 Hours: Microbiology 03/28/21 14:50 Aerobic Blood Culture - Preliminary Blood - Venous NO GROWTH AFTER 1 DAY Anaerobic Blood Culture - Preliminary NO GROWTH AFTER 1 DAY 03/28/21 14:55 Aerobic Blood Culture - Preliminary Blood - Venous - Lab Draw NO GROWTH AFTER 1 DAY Anaerobic Blood Culture - Preliminary NO GROWTH AFTER 1 DAY Med Orders - Current: Current Medications Acetaminophen (Acetaminophen 325 Mg Tab) 650 mg PO Q4H PRN PRN Reason: Pain (Mild 1-3)/fever Last Admin: 03/30/21 09:26 Dose: 650 mg Documented by: Albuterol (Albuterol 8 Gm Inhaler *Ptom*) 0 gm INH Q4H PRN PRN Reason: Shortness of Breath Albuterol/Ipratropium (Albuterol/Ipratropium 3.0-0.5 Mg/3 Ml Neb Soln) 3 ml NEB QID [facility] Last Admin: 03/30/21 09:35 Dose: 3 ml Documented by: Budesonide (Budesonide 0.5 Mg/2 Ml Neb Susp) 0.5 mg NEB BID [facility] Last Admin: 03/30/21 09:25 Dose: 0.5 mg Documented by: Enoxaparin Sodium (Enoxaparin 40 Mg/0.4 Ml Syringe) 40 mg SUBCUT Q24H [facility] Last Admin: 03/29/21 17:00 Dose: 40 mg Documented by: Guaifenesin (Guaifenesin 600 Mg Tab.Er) 600 mg PO BID [facility] Last Admin: 03/30/21 10:42 Dose: 600 mg Documented by: Levofloxacin/Dextrose 750 mg/ (Premix) 150 mls @ 100 mls/hr IV Q24H [facility] Last Admin: 03/29/21 14:39 Dose: 100 mls/hr Documented by: Ibuprofen (Ibuprofen 400 Mg Tab) 400 mg PO Q6H PRN PRN Reason: Pain/Fever Last Admin: 03/30/21 09:26 Dose: 400 mg Documented by: Lidocaine (Lidocaine 4% 1 Each Patch) 0 each TOP DAILY PRN PRN Reason: Pain Last Admin: 03/28/21 21:10 Dose: 1 each Documented by: Lisinopril (Lisinopril 10 Mg Tab) 10 mg PO DAILY [facility] Last Admin: 03/30/21 09:35 Dose: 10 mg Documented by: Metoprolol Succinate (Metoprolol Succinate 50 Mg Tab.Er) 50 mg PO DAILY [facility] Last Admin: 03/30/21 09:36 Dose: 50 mg Documented by: Refresh Plus 0.5% 30 (Each *Ptom*) 1 drop EYEBOTH BID [facility] Last Admin: 03/30/21 09:36 Dose: 1 drop Documented by: (Revefenacin [ Yupelri] 175 Mcg)* Pt Own Med* 0 each INH DAILY [facility] Last Admin: 03/30/21 09:00 Dose: 1 each Documented by: Prednisone (Prednisone 20 Mg Tab) 40 mg PO DAILY [facility] Stop: 04/03/21 09:01 Last Admin: 03/30/21 10:43 Dose: 40 mg Documented by: Simvastatin (Simvastatin 20 Mg Tab) 20 mg PO BEDTIME [facility] Last Admin: 03/29/21 20:43 Dose: 20 mg Documented by: Sodium Chloride (Sodium Chloride 0.9% 10 Ml Syringe) 10 ml FLUSH ASDIRECTED PRN PRN Reason: Keep Vein Open Tizanidine HCl (Tizanidine 4 Mg Tab) 4 mg PO Q6H PRN PRN Reason: Muscle Spasm - Painful Last Admin: 03/29/21 14:45 Dose: 4 mg Documented by: Discontinued Medications Albuterol (Albuterol 8 Gm Inhaler *Ptom*) 0 gm INH Q4H PRN PRN Reason: Shortness of Breath Albuterol/Ipratropium (Albuterol/Ipratropium 3.0-0.5 Mg/3 Ml Neb Soln) 3 ml NEB Q4H PRN PRN Reason: Shortness Of Breath/wheezing Sodium Chloride (Normal Saline) 1,000 mls @ 75 mls/hr IV ASDIRECTED [facility] Last Admin: 03/29/21 07:44 Dose: 75 mls/hr Documented by: Non-Formulary Medication (Revefenacin [Yupelri]) 175 mcg IH BID [place] (Revefenacin [ Yupelri] 175 Mcg)* Pt Own Med* 0 each INH ONETIME ONE Stop: 03/28/21 21:31 Last Admin: 03/28/21 21:11 Dose: 1 each Documented by: - Exam Quality Assessment: Supplemental Oxygen General: Alert, Oriented, Cooperative, Other (Chilled, shaking) Lungs: Normal Respiratory Effort (pursed lipped breathing), Decreased Breath Sounds (bibasilar), Rhonchi (MILAGROS/LLL mid lung more rhonchi then base), Wheezing (throughout) Cardiovascular: Regular Rate, Regular Rhythm GI/Abdominal Exam: Normal Bowel Sounds, Soft, Non-Tender, No Distention Extremities: No Pedal Edema - Patient Data Lab Results Last 24 hrs: Laboratory Results - last 24 hr 03/30/21 03/30/21 Range/Units 08:30 08:30 WBC 15.5 H (3.0-10.3) x10-3/uL RBC 3.28 L (3.60-5.20) x10(6)uL Hgb 9.6 L (11.4-15.5) g/dL Hct 28.9 L (34.2-48.2) % MCV 88.3 (76.7-100.5) fL MCH 29.2 (23.9-33.9) pg MCHC 33.1 (31.9-34.8) g/dL RDW 14.5 (12.3-16.5) % Plt Count 201 (151-488) x10(3)uL MPV 7.9 (7.1-12.4) fL Add Manual Diff Yes Neutrophils % (Manual) 86 H (46-82) % Lymphocytes % (Manual) 7 L (13-37) % Monocytes % (Manual) 7 (4-12) % Toxic Granulation Few H (NOT SEEN) Sodium 131 L (135-145) mmol/L Potassium 4.3 (3.5-5.3) mmol/L Chloride 97 L (100-110) mmol/L Carbon Dioxide 28 (21-32) mmol/L BUN 7 (7-18) mg/dL Creatinine 0.9 (0.55-1.02) mg/dL Est Cr Clr Drug Dosing 46.48 mL/min Estimated GFR (MDRD) > 60 (>60) BUN/Creatinine Ratio 7.8 L (9-20) Glucose 129 H (80-116) mg/dL Calcium 7.8 L (8.6-10.2) mg/dL Result Diagrams: 03/30/21 08:30 03/30/21 08:30 Ramy Results Last 24 hrs: Microbiology 03/28/21 14:50 Aerobic Blood Culture - Preliminary Blood - Venous NO GROWTH AFTER 1 DAY Anaerobic Blood Culture - Preliminary NO GROWTH AFTER 1 DAY 03/28/21 14:55 Aerobic Blood Culture - Preliminary Blood - Venous - Lab Draw NO GROWTH AFTER 1 DAY Anaerobic Blood Culture - Preliminary NO GROWTH AFTER 1 DAY Sepsis Event Note - Evaluation Sepsis Screening Result: No Definite Risk - Focused Exam Vital Signs: Vital Signs Temp Temp Pulse Pulse Resp BP BP 03/30/21 10:26 99.8 F 03/30/21 09:56 99.8 F 03/30/21 09:36 95 152/70 H 03/30/21 09:35 152/70 H 03/30/21 09:26 100.2 F 03/30/21 05:45 98.4 F 89 18 113/50 L Pulse Ox 03/30/21 10:26 03/30/21 09:56 03/30/21 09:36 03/30/21 09:35 03/30/21 09:26 03/30/21 05:45 98 - Problem List & Annotations (1) Hospital-acquired pneumonia SNOMED Code(s): 204278630 Code(s): J18.9 - PNEUMONIA, UNSPECIFIED ORGANISM; Y95 - NOSOCOMIAL CONDITION Status: Acute Current Visit: Yes Annotation/Comment:: Recent hospitalization/rehab stay 03/10-03/24 (2) Fever SNOMED Code(s): 244990562 Code(s): R50.9 - FEVER, UNSPECIFIED Status: Resolved Current Visit: Yes (3) Hyponatremia SNOMED Code(s): 32792644 Code(s): E87.1 - HYPO-OSMOLALITY AND HYPONATREMIA Status: Acute Current Visit: Yes Annotation/Comment:: stable at 129. (4) COPD (chronic obstructive pulmonary disease) SNOMED Code(s): 72702849 Code(s): J44.9 - CHRONIC OBSTRUCTIVE PULMONARY DISEASE, UNSPECIFIED Status: Chronic Current Visit: Yes Annotation/Comment:: on home O2 at 2L continuous (5) Hypertension SNOMED Code(s): 48270210 Code(s): I10 - ESSENTIAL (PRIMARY) HYPERTENSION Status: Chronic Current Visit: Yes (6) Dyslipidemia SNOMED Code(s): 666533819 Code(s): E78.5 - HYPERLIPIDEMIA, UNSPECIFIED Status: Chronic Current Visit: Yes - Problem List Review Problem List Initiated/Reviewed/Updated: Yes - My Orders Last 24 Hours: My Active Orders 03/29/21 13:21 tiZANidine [Zanaflex] 4 mg PO Q6H PRN 03/29/21 15:45 Convert IV to Peripheral Lock [Convert IV to Saline Lock] [OM.PC] Routine 03/30/21 10:00 guaiFENesin [Mucinex] 600 mg PO BID predniSONE 40 mg PO DAILY 03/31/21 06:00 BASIC METABOLIC PANEL,BMP [CHEM] Routine CBC WITH AUTO DIFF [HEME] Routine - Plan Plan:: 1. HAP/fever: WBC 15.5, BC no growth. Sputum: gram negative bacilli, ID & RAMY pending. Levofloxacin 750 mg IV q24h day 3. Continue home nebs & inhalers. Continue Acapella q1hwa, patient brought her home one with her. Repeat labs tomorrow. Oxygen by nc at 2L continuous. Tylenol & Ibuprofen as needed fever. Anxious, will add hydroxyzine as needed anxiety. 2. Hyponatremia: 131, states she drinks a lot of water. Will saline lock, repeat BMP tomorrow. 3. Neck pain/spasm: Tizanidine 4 mg as needed, 1 dose used yesterday, nothing further. Lidocaine patches as needed.
[2021-03-30] MEDS: Levofloxacin/Dextrose 5%-Water 750 MG in Premix Bag 1 BAG IV SCH (13:32)
[2021-03-30] MEDS: Sodium Chloride 0.9% 10 ML Syringe FLUSH PRN (14:38)
[2021-03-30] MEDS: Enoxaparin 40 MG/0.4 ML Syringe SUBCUT SCH (16:45)
[2021-03-30] MEDS: Simvastatin 20 MG Tab PO SCH (20:12)
[2021-03-31] MEDS: Metoprolol Succinate 50 MG Tab.ER PO SCH (08:08)
[2021-03-31] MEDS: Lisinopril 10 MG Tab PO SCH (08:08)
[2021-03-31] MEDS: guaiFENesin 600 MG Tab.ER PO SCH ×2 (08:08→20:50)
[2021-03-31] MEDS: predniSONE 20 MG Tab PO SCH (08:09)
[2021-03-31] MEDS: Budesonide 0.5 MG/2 ML Neb Susp NEB SCH ×2 (08:22→20:50)
[2021-03-31] MEDS: REFRESH PLUS EYEBOTH SCH ×2 (08:23→20:49)
[2021-03-31] MEDS: Albuterol/Ipratropium 3.0-0.5 MG/3 ML Neb Soln NEB SCH ×4 (08:31→20:50)
[2021-03-31] MEDS: Levofloxacin/Dextrose 5%-Water 750 MG in Premix Bag 1 BAG IV SCH (14:34)
[2021-03-31] MEDS: Sodium Chloride 0.9% 10 ML Syringe FLUSH PRN (14:35)
--- NOTE | 2021-03-31 15:21 | PCM.PN ---
- General Info Date of Service: 03/31/21 Subjective Update: Marleen is feeling better today, productive cough. Oxygen at 98-99% on home 2L. Appetite is improving. Chilled today but no fevers documented. No loose stools. Sputum culture came back light growth Stenotrophomonas sensitive to Levofloxacin and occasional growth of pseudomonas also sensitive to Levofloxacin. - Patient Data Vitals - Most Recent: Last Vital Signs Temp 97.9 F 03/31/21 07:50 Pulse 79 03/31/21 08:08 Resp 18 03/31/21 07:50 BP 143/78 H 03/31/21 08:08 Pulse Ox 99 03/31/21 07:50 Weight - Most Recent: 108 lb 8 oz Lab Results Last 24 Hours: Laboratory Results - last 24 hr 03/31/21 03/31/21 Range/Units 06:30 06:30 WBC 13.1 H (3.0-10.3) x10-3/uL RBC 3.02 L (3.60-5.20) x10(6)uL Hgb 8.7 L (11.4-15.5) g/dL Hct 26.7 L (34.2-48.2) % MCV 88.3 (76.7-100.5) fL MCH 28.6 (23.9-33.9) pg MCHC 32.4 (31.9-34.8) g/dL RDW 14.4 (12.3-16.5) % Plt Count 206 (151-488) x10(3)uL MPV 8.0 (7.1-12.4) fL Add Manual Diff Yes Neutrophils % (Manual) 90 H (46-82) % Lymphocytes % (Manual) 7 L (13-37) % Monocytes % (Manual) 3 L (4-12) % Toxic Granulation Occasional (NOT SEEN) Sodium 130 L (135-145) mmol/L Potassium 4.6 (3.5-5.3) mmol/L Chloride 97 L (100-110) mmol/L Carbon Dioxide 27 (21-32) mmol/L BUN 11 (7-18) mg/dL Creatinine 0.8 (0.55-1.02) mg/dL Est Cr Clr Drug Dosing 52.29 mL/min Estimated GFR (MDRD) > 60 (>60) BUN/Creatinine Ratio 13.8 (9-20) Glucose 121 H (80-116) mg/dL Calcium 8.2 L (8.6-10.2) mg/dL Ramy Results Last 24 Hours: Microbiology 03/28/21 15:25 Gram Stain - Final Sputum - Expectorated Testing performed by: [address] [id number] SEE SEPARATE/SCANNED REPORT Sputum Culture - Final Testing performed by: [address] [id number] SEE SEPARATE/SCANNED REPORT 03/28/21 14:55 Aerobic Blood Culture - Preliminary Blood - Venous - Lab Draw NO GROWTH AFTER 3 DAYS Anaerobic Blood Culture - Preliminary NO GROWTH AFTER 3 DAYS 03/28/21 14:50 Aerobic Blood Culture - Preliminary Blood - Venous NO GROWTH AFTER 3 DAYS Anaerobic Blood Culture - Preliminary NO GROWTH AFTER 3 DAYS Med Orders - Current: Current Medications Acetaminophen (Acetaminophen 325 Mg Tab) 650 mg PO Q4H PRN PRN Reason: Pain (Mild 1-3)/fever Last Admin: 03/30/21 09:26 Dose: 650 mg Documented by: Albuterol (Albuterol 8 Gm Inhaler *Ptom*) 0 gm INH Q4H PRN PRN Reason: Shortness of Breath Albuterol/Ipratropium (Albuterol/Ipratropium 3.0-0.5 Mg/3 Ml Neb Soln) 3 ml NEB QID [facility] Last Admin: 03/31/21 12:52 Dose: 3 ml Documented by: Budesonide (Budesonide 0.5 Mg/2 Ml Neb Susp) 0.5 mg NEB BID [facility] Last Admin: 03/31/21 08:22 Dose: 0.5 mg Documented by: Enoxaparin Sodium (Enoxaparin 40 Mg/0.4 Ml Syringe) 40 mg SUBCUT Q24H [facility] Last Admin: 03/30/21 16:45 Dose: 40 mg Documented by: Guaifenesin (Guaifenesin 600 Mg Tab.Er) 600 mg PO BID [facility] Last Admin: 03/31/21 08:08 Dose: 600 mg Documented by: Hydroxyzine Pamoate (Hydroxyzine Pamoate 50 Mg Cap) 50 mg PO Q6H PRN PRN Reason: Anxiety Levofloxacin/Dextrose 750 mg/ (Premix) 150 mls @ 100 mls/hr IV Q24H [facility] Last Admin: 03/31/21 14:34 Dose: 100 mls/hr Documented by: Ibuprofen (Ibuprofen 400 Mg Tab) 400 mg PO Q6H PRN PRN Reason: Pain/Fever Last Admin: 03/30/21 20:12 Dose: 400 mg Documented by: Lidocaine (Lidocaine 4% 1 Each Patch) 0 each TOP DAILY PRN PRN Reason: Pain Last Admin: 03/28/21 21:10 Dose: 1 each Documented by: Lisinopril (Lisinopril 10 Mg Tab) 10 mg PO DAILY [facility] Last Admin: 03/31/21 08:08 Dose: 10 mg Documented by: Metoprolol Succinate (Metoprolol Succinate 50 Mg Tab.Er) 50 mg PO DAILY [facility] Last Admin: 03/31/21 08:08 Dose: 50 mg Documented by: Refresh Plus 0.5% 30 (Each *Ptom*) 1 drop EYEBOTH BID [facility] Last Admin: 03/31/21 08:23 Dose: 1 drop Documented by: (Revefenacin [ Yupelri] 175 Mcg)* Pt Own Med* 0 each INH DAILY [facility] Last Admin: 03/31/21 08:09 Dose: 1 each Documented by: Prednisone (Prednisone 20 Mg Tab) 40 mg PO DAILY [facility] Stop: 04/03/21 09:01 Last Admin: 03/31/21 08:09 Dose: 40 mg Documented by: Simvastatin (Simvastatin 20 Mg Tab) 20 mg PO BEDTIME [facility] Last Admin: 03/30/21 20:12 Dose: 20 mg Documented by: Sodium Chloride (Sodium Chloride 0.9% 10 Ml Syringe) 10 ml FLUSH ASDIRECTED PRN PRN Reason: Keep Vein Open Last Admin: 03/31/21 14:35 Dose: 10 ml Documented by: Tizanidine HCl (Tizanidine 4 Mg Tab) 4 mg PO Q6H PRN PRN Reason: Muscle Spasm - Painful Last Admin: 03/29/21 14:45 Dose: 4 mg Documented by: Discontinued Medications Albuterol (Albuterol 8 Gm Inhaler *Ptom*) 0 gm INH Q4H PRN PRN Reason: Shortness of Breath Albuterol/Ipratropium (Albuterol/Ipratropium 3.0-0.5 Mg/3 Ml Neb Soln) 3 ml NEB Q4H PRN PRN Reason: Shortness Of Breath/wheezing Sodium Chloride (Normal Saline) 1,000 mls @ 75 mls/hr IV ASDIRECTED [place] Last Admin: 03/29/21 07:44 Dose: 75 mls/hr Documented by: Non-Formulary Medication (Revefenacin [Yupelri]) 175 mcg IH BID [place] (Revefenacin [ Yupelri] 175 Mcg)* Pt Own Med* 0 each INH ONETIME ONE Stop: 03/28/21 21:31 Last Admin: 03/28/21 21:11 Dose: 1 each Documented by: - Exam General: Alert, Oriented, Cooperative, No Acute Distress Lungs: Normal Respiratory Effort, Decreased Breath Sounds (Bibasilar), Rhonchi (MILAGROS, LLL), Wheezing (bibasilar) Cardiovascular: Regular Rate, Regular Rhythm GI/Abdominal Exam: Normal Bowel Sounds, Soft, Non-Tender, No Distention Extremities: No Pedal Edema Peripheral Pulses: 2+: Radial (L), Radial (R) Skin: Warm, Dry, Intact - Patient Data Lab Results Last 24 hrs: Laboratory Results - last 24 hr 03/31/21 03/31/21 Range/Units 06:30 06:30 WBC 13.1 H (3.0-10.3) x10-3/uL RBC 3.02 L (3.60-5.20) x10(6)uL Hgb 8.7 L (11.4-15.5) g/dL Hct 26.7 L (34.2-48.2) % MCV 88.3 (76.7-100.5) fL MCH 28.6 (23.9-33.9) pg MCHC 32.4 (31.9-34.8) g/dL RDW 14.4 (12.3-16.5) % Plt Count 206 (151-488) x10(3)uL MPV 8.0 (7.1-12.4) fL Add Manual Diff Yes Neutrophils % (Manual) 90 H (46-82) % Lymphocytes % (Manual) 7 L (13-37) % Monocytes % (Manual) 3 L (4-12) % Toxic Granulation Occasional (NOT SEEN) Sodium 130 L (135-145) mmol/L Potassium 4.6 (3.5-5.3) mmol/L Chloride 97 L (100-110) mmol/L Carbon Dioxide 27 (21-32) mmol/L BUN 11 (7-18) mg/dL Creatinine 0.8 (0.55-1.02) mg/dL Est Cr Clr Drug Dosing 52.29 mL/min Estimated GFR (MDRD) > 60 (>60) BUN/Creatinine Ratio 13.8 (9-20) Glucose 121 H (80-116) mg/dL Calcium 8.2 L (8.6-10.2) mg/dL Result Diagrams: 03/31/21 06:30 03/31/21 06:30 Ramy Results Last 24 hrs: Microbiology 03/28/21 15:25 Gram Stain - Final Sputum - Expectorated Testing performed by: [address] [id number] SEE SEPARATE/SCANNED REPORT Sputum Culture - Final Testing performed by: [address] [id number] SEE SEPARATE/SCANNED REPORT 03/28/21 14:55 Aerobic Blood Culture - Preliminary Blood - Venous - Lab Draw NO GROWTH AFTER 3 DAYS Anaerobic Blood Culture - Preliminary NO GROWTH AFTER 3 DAYS 03/28/21 14:50 Aerobic Blood Culture - Preliminary Blood - Venous NO GROWTH AFTER 3 DAYS Anaerobic Blood Culture - Preliminary NO GROWTH AFTER 3 DAYS Sepsis Event Note - Evaluation Sepsis Screening Result: No Definite Risk - Focused Exam Vital Signs: Vital Signs Temp Temp Pulse Pulse Resp BP BP 03/31/21 08:08 79 143/78 H 03/31/21 07:50 97.9 F 79 18 143/78 H 03/31/21 06:30 97.6 F 18 Pulse Ox 03/31/21 08:08 03/31/21 07:50 99 03/31/21 06:30 - Problem List & Annotations (1) Hospital-acquired pneumonia SNOMED Code(s): 137385876 Code(s): J18.9 - PNEUMONIA, UNSPECIFIED ORGANISM; Y95 - NOSOCOMIAL CONDITION Status: Acute Current Visit: Yes Annotation/Comment:: Recent hosp italization/rehab stay 03/10-03/24 (2) Fever SNOMED Code(s): 765445926 Code(s): R50.9 - FEVER, UNSPECIFIED Status: Resolved Current Visit: Yes (3) Hyponatremia SNOMED Code(s): 65412583 Code(s): E87.1 - HYPO-OSMOLALITY AND HYPONATREMIA Status: Acute Current Visit: Yes Annotation/Comment:: stable at 130. (4) COPD (chronic obstructive pulmonary disease) SNOMED Code(s): 99096549 Code(s): J44.9 - CHRONIC OBSTRUCTIVE PULMONARY DISEASE, UNSPECIFIED Status: Chronic Current Visit: Yes Annotation/Comment:: on home O2 at 2L continuous (5) Hypertension SNOMED Code(s): 44577158 Code(s): I10 - ESSENTIAL (PRIMARY) HYPERTENSION Status: Chronic Current Visit: Yes (6) Dyslipidemia SNOMED Code(s): 618263854 Code(s): E78.5 - HYPERLIPIDEMIA, UNSPECIFIED Status: Chronic Current Visit: Yes - Problem List Review Problem List Initiated/Reviewed/Updated: Yes - Plan Plan:: 1. HAP/fever: WBC 13.8, BC no growth. Sputum: stenotrophomonas & pseudomonas both sensitive to Levofloxacin. Levofloxacin 750 mg IV q24h day 4. Continue home nebs & inhalers. Continue Acapella q1hwa, patient brought her home one with her. Repeat labs tomorrow. Oxygen by nc at 2L continuous. Tylenol & Ibuprofen as needed fever. Anxious, will add hydroxyzine as needed anxiety. 2. Hyponatremia: 130, states she drinks a lot of water, advised to keep at 2L. Will saline lock, repeat BMP tomorrow. 3. Neck pain/spasm: Tizanidine 4 mg as needed, 1 dose used yesterday, nothing further. Lidocaine patches as needed.
[2021-03-31] MEDS: Enoxaparin 40 MG/0.4 ML Syringe SUBCUT SCH (17:09)
[2021-03-31] MEDS: Simvastatin 20 MG Tab PO SCH (20:51)
[2021-03-31] MEDS: Ibuprofen 400 MG Tab PO PRN (20:59)
[2021-04-01] MEDS: Acetaminophen 325 MG Tab PO PRN (05:47)
[2021-04-01] MEDS: REFRESH PLUS EYEBOTH SCH ×2 (08:01→20:16)
[2021-04-01] MEDS: guaiFENesin 600 MG Tab.ER PO SCH ×2 (08:02→20:16)
[2021-04-01] MEDS: predniSONE 20 MG Tab PO SCH (08:03)
[2021-04-01] MEDS: Metoprolol Succinate 50 MG Tab.ER PO SCH (08:09)
[2021-04-01] MEDS: Lisinopril 10 MG Tab PO SCH (08:09)
[2021-04-01] MEDS: Albuterol/Ipratropium 3.0-0.5 MG/3 ML Neb Soln NEB SCH ×4 (08:13→20:09)
[2021-04-01] MEDS: Budesonide 0.5 MG/2 ML Neb Susp NEB SCH ×2 (08:13→20:08)
[2021-04-01] MEDS: Ibuprofen 400 MG Tab PO PRN ×2 (09:12→20:17)
--- NOTE | 2021-04-01 11:04 | PCM.PN ---
- General Info Date of Service: 04/01/21 Subjective Update: She states her breathing is improved. No fevers or chills. Had loose stool yesterday but nothing today. Walked 1x in [place] with aide. - Patient Data Vitals - Most Recent: Last Vital Signs Temp 98.8 F 04/01/21 08:00 Pulse 98 04/01/21 08:09 Resp 16 04/01/21 08:00 BP 138/66 04/01/21 08:09 Pulse Ox 98 04/01/21 08:00 Weight - Most Recent: 108 lb 8 oz Lab Results Last 24 Hours: Laboratory Results - last 24 hr 04/01/21 04/01/21 Range/Units 06:00 06:00 WBC 14.2 H (3.0-10.3) x10-3/uL RBC 3.27 L (3.60-5.20) x10(6)uL Hgb 9.4 L (11.4-15.5) g/dL Hct 29.0 L (34.2-48.2) % MCV 88.6 (76.7-100.5) fL MCH 28.6 (23.9-33.9) pg MCHC 32.3 (31.9-34.8) g/dL RDW 14.3 (12.3-16.5) % Plt Count 253 (151-488) x10(3)uL MPV 7.4 (7.1-12.4) fL Neut % (Auto) 79.6 H (30.8-76.2) % Lymph % (Auto) 9.9 L (18.4-52.1) % Boyd % (Auto) 10.2 (4.4-15.7) % Eos % (Auto) 0.2 L (0.6-8.1) % Baso % (Auto) 0.1 L (0.2-1.5) % Neut # (Auto) 11.3 H (1.5-6.3) x10-3/uL Lymph # (Auto) 1.4 (1.0-4.4) x10-3/uL Boyd # (Auto) 1.5 H (0.3-1.0) x10-3/uL Eos # (Auto) 0.0 (0.0-0.8) x10-3/uL Baso # (Auto) 0.0 (0.0-0.1) x10-3/uL Sodium 133 L (135-145) mmol/L Potassium 4.6 (3.5-5.3) mmol/L Chloride 98 L (100-110) mmol/L Carbon Dioxide 30 (21-32) mmol/L BUN 13 (7-18) mg/dL Creatinine 0.9 (0.55-1.02) mg/dL Est Cr Clr Drug Dosing 46.48 mL/min Estimated GFR (MDRD) > 60 (>60) BUN/Creatinine Ratio 14.4 (9-20) Glucose 100 (80-116) mg/dL Calcium 8.3 L (8.6-10.2) mg/dL Ramy Results Last 24 Hours: Microbiology 03/28/21 15:25 Gram Stain - Final Sputum - Expectorated Testing performed by: [address] [id number] SEE SEPARATE/SCANNED REPORT Sputum Culture - Final Testing performed by: [address] [id number] SEE SEPARATE/SCANNED REPORT 03/28/21 14:55 Aerobic Blood Culture - Preliminary Blood - Venous - Lab Draw NO GROWTH AFTER 3 DAYS Anaerobic Blood Culture - Preliminary NO GROWTH AFTER 3 DAYS 03/28/21 14:50 Aerobic Blood Culture - Preliminary Blood - Venous NO GROWTH AFTER 3 DAYS Anaerobic Blood Culture - Preliminary NO GROWTH AFTER 3 DAYS Med Orders - Current: Current Medications Acetaminophen (Acetaminophen 325 Mg Tab) 650 mg PO Q4H PRN PRN Reason: Pain (Mild 1-3)/fever Last Admin: 04/01/21 05:47 Dose: 650 mg Documented by: Albuterol (Albuterol 8 Gm Inhaler *Ptom*) 0 gm INH Q4H PRN PRN Reason: Shortness of Breath Albuterol/Ipratropium (Albuterol/Ipratropium 3.0-0.5 Mg/3 Ml Neb Soln) 3 ml NEB QID [facility] Last Admin: 04/01/21 08:13 Dose: 3 ml Documented by: Budesonide (Budesonide 0.5 Mg/2 Ml Neb Susp) 0.5 mg NEB BID [facility] Last Admin: 04/01/21 08:13 Dose: 0.5 mg Documented by: Enoxaparin Sodium (Enoxaparin 40 Mg/0.4 Ml Syringe) 40 mg SUBCUT Q24H [facility] Last Admin: 03/31/21 17:09 Dose: 40 mg Documented by: Guaifenesin (Guaifenesin 600 Mg Tab.Er) 600 mg PO BID [facility] Last Admin: 04/01/21 08:02 Dose: 600 mg Documented by: Hydroxyzine Pamoate (Hydroxyzine Pamoate 50 Mg Cap) 50 mg PO Q6H PRN PRN Reason: Anxiety Levofloxacin/Dextrose 750 mg/ (Premix) 150 mls @ 100 mls/hr IV Q24H [facility] Last Admin: 03/31/21 14:34 Dose: 100 mls/hr Documented by: Ibuprofen (Ibuprofen 400 Mg Tab) 400 mg PO Q6H PRN PRN Reason: Pain/Fever Last Admin: 04/01/21 09:12 Dose: 400 mg Documented by: Lidocaine (Lidocaine 4% 1 Each Patch) 0 each TOP DAILY PRN PRN Reason: Pain Last Admin: 03/28/21 21:10 Dose: 1 each Documented by: Lisinopril (Lisinopril 10 Mg Tab) 10 mg PO DAILY [facility] Last Admin: 04/01/21 08:09 Dose: 10 mg Documented by: Metoprolol Succinate (Metoprolol Succinate 50 Mg Tab.Er) 50 mg PO DAILY [facility] Last Admin: 04/01/21 08:09 Dose: 50 mg Documented by: Refresh Plus 0.5% 30 (Each *Ptom*) 1 drop EYEBOTH BID [facility] Last Admin: 04/01/21 08:01 Dose: 1 drop Documented by: (Revefenacin [ Yupelri] 175 Mcg)* Pt Own Med* 0 each INH DAILY [facility] Last Admin: 04/01/21 08:04 Dose: 1 each Documented by: Prednisone (Prednisone 20 Mg Tab) 40 mg PO DAILY [facility] Stop: 04/03/21 09:01 Last Admin: 04/01/21 08:03 Dose: 40 mg Documented by: Simvastatin (Simvastatin 20 Mg Tab) 20 mg PO BEDTIME [facility] Last Admin: 03/31/21 20:51 Dose: 20 mg Documented by: Sodium Chloride (Sodium Chloride 0.9% 10 Ml Syringe) 10 ml FLUSH ASDIRECTED PRN PRN Reason: Keep Vein Open Last Admin: 03/31/21 14:35 Dose: 10 ml Documented by: Tizanidine HCl (Tizanidine 4 Mg Tab) 4 mg PO Q6H PRN PRN Reason: Muscle Spasm - Painful Last Admin: 03/29/21 14:45 Dose: 4 mg Documented by: Discontinued Medications Albuterol (Albuterol 8 Gm Inhaler *Ptom*) 0 gm INH Q4H PRN PRN Reason: Shortness of Breath Albuterol/Ipratropium (Albuterol/Ipratropium 3.0-0.5 Mg/3 Ml Neb Soln) 3 ml NEB Q4H PRN PRN Reason: Shortness Of Breath/wheezing Sodium Chloride (Normal Saline) 1,000 mls @ 75 mls/hr IV ASDIRECTED [place] Last Admin: 03/29/21 07:44 Dose: 75 mls/hr Documented by: Non-Formulary Medication (Revefenacin [Yupelri]) 175 mcg IH BID [place] (Revefenacin [ Yupelri] 175 Mcg)* Pt Own Med* 0 each INH ONETIME ONE Stop: 03/28/21 21:31 Last Admin: 03/28/21 21:11 Dose: 1 each Documented by: - Exam Quality Assessment: Supplemental Oxygen General: Alert, Oriented, Cooperative, No Acute Distress Lungs: Normal Respiratory Effort, Decreased Breath Sounds (throughout). No: Crackles, Rales, Rhonchi, Wheezing Cardiovascular: Regular Rate, Regular Rhythm GI/Abdominal Exam: Normal Bowel Sounds, Soft, Non-Tender, No Distention Extremities: No Pedal Edema, Normal Capillary Refill Peripheral Pulses: 2+: Radial (L), Radial (R) - Patient Data Lab Results Last 24 hrs: Laboratory Results - last 24 hr 04/01/21 04/01/21 Range/Units 06:00 06:00 WBC 14.2 H (3.0-10.3) x10-3/uL RBC 3.27 L (3.60-5.20) x10(6)uL Hgb 9.4 L (11.4-15.5) g/dL Hct 29.0 L (34.2-48.2) % MCV 88.6 (76.7-100.5) fL MCH 28.6 (23.9-33.9) pg MCHC 32.3 (31.9-34.8) g/dL RDW 14.3 (12.3-16.5) % Plt Count 253 (151-488) x10(3)uL MPV 7.4 (7.1-12.4) fL Neut % (Auto) 79.6 H (30.8-76.2) % Lymph % (Auto) 9.9 L (18.4-52.1) % Boyd % (Auto) 10.2 (4.4-15.7) % Eos % (Auto) 0.2 L (0.6-8.1) % Baso % (Auto) 0.1 L (0.2-1.5) % Neut # (Auto) 11.3 H (1.5-6.3) x10-3/uL Lymph # (Auto) 1.4 (1.0-4.4) x10-3/uL [place] # (Auto) 1.5 H (0.3-1.0) x10-3/uL Eos # (Auto) 0.0 (0.0-0.8) x10-3/uL Baso # (Auto) 0.0 (0.0-0.1) x10-3/uL Sodium 133 L (135-145) mmol/L Potassium 4.6 (3.5-5.3) mmol/L Chloride 98 L (100-110) mmol/L Carbon Dioxide 30 (21-32) mmol/L BUN 13 (7-18) mg/dL Creatinine 0.9 (0.55-1.02) mg/dL Est Cr Clr Drug Dosing 46.48 mL/min Estimated GFR (MDRD) > 60 (>60) BUN/Creatinine Ratio 14.4 (9-20) Glucose 100 (80-116) mg/dL Calcium 8.3 L (8.6-10.2) mg/dL Result Diagrams: 04/01/21 06:00 04/01/21 06:00 Ramy Results Last 24 hrs: Microbiology 03/28/21 15:25 Gram Stain - Final Sputum - Expectorated Testing performed by: [address] [id number] SEE SEPARATE/SCANNED REPORT Sputum Culture - Final Testing performed by: [address] [id number] SEE SEPARATE/SCANNED REPORT 03/28/21 14:55 Aerobic Blood Culture - Preliminary Blood - Venous - Lab Draw NO GROWTH AFTER 3 DAYS Anaerobic Blood Culture - Preliminary NO GROWTH AFTER 3 DAYS 03/28/21 14:50 Aerobic Blood Culture - Preliminary Blood - Venous NO GROWTH AFTER 3 DAYS Anaerobic Blood Culture - Preliminary NO GROWTH AFTER 3 DAYS Sepsis Event Note - Evaluation Sepsis Screening Result: No Definite Risk - Focused Exam Vital Signs: Vital Signs Temp Pulse Pulse Resp BP BP Pulse Ox 04/01/21 08:09 98 138/66 04/01/21 08:00 98.8 F 98 16 143/85 H 04/01/21 05:10 98.8 F 88 20 151/74 H 99 Pulse Ox 04/01/21 08:09 04/01/21 08:00 98 04/01/21 05:10 - Problem List & Annotations (1) Hospital-acquired pneumonia SNOMED Code(s): 572712950 Code(s): J18.9 - PNEUMONIA, UNSPECIFIED ORGANISM; Y95 - NOSOCOMIAL CONDITION Status: Acute Current Visit: Yes Annotation/Comment:: Recent hospitalization/rehab stay 03/10-03/24 Grew Stenotrophomonas & Pseudomonas both sensitive to Levofloxacin. (2) Hyponatremia SNOMED Code(s): 36276175 Code(s): E87.1 - HYPO-OSMOLALITY AND HYPONATREMIA Status: Acute Current Visit: Yes Annotation/Comment:: Improved to 133. (3) COPD (chronic obstructive pulmonary disease) SNOMED Code(s): 63667016 Code(s): J44.9 - CHRONIC OBSTRUCTIVE PULMONARY DISEASE, UNSPECIFIED Status: Chronic Current Visit: Yes Annotation/Comment:: on home O2 at 2L continuous (4) Hypertension SNOMED Code(s): 24201754 Code(s): I10 - ESSENTIAL (PRIMARY) HYPERTENSION Status: Chronic Current Visit: Yes (5) Dyslipidemia SNOMED Code(s): 975198910 Code(s): E78.5 - HYPERLIPIDEMIA, UNSPECIFIED Status: Chronic Current Visit: Yes (6) Fever SNOMED Code(s): 830594363 Code(s): R50.9 - FEVER, UNSPECIFIED Status: Resolved Current Visit: Yes - Problem List Review Problem List Initiated/Reviewed/Updated: Yes - Plan Plan:: 1. HAP/fever: WBC 14.2, BC no growth. Sputum: stenotrophomonas & pseudomonas both sensitive to Levofloxacin. Levofloxacin 750 mg IV q24h day 5. Continue home nebs & inhalers. Continue Acapella q1hwa, patient brought her home one with her. Repeat labs tomorrow. Oxygen by nc at 2L continuous. Tylenol & Ibuprofen as needed fever. Anxious, will add hydroxyzine as needed anxiety. 2. Hyponatremia: 133, repeat BMP tomorrow. 3. Disposition: anticipate discharge possibly tomorrow on orals with close follow up with Dr Orozco or Deepthi Brown.
[2021-04-01] MEDS: Albuterol 8 GM Inhaler *PTOM INH PRN ×2 (11:31→15:31)
[2021-04-01] MEDS ORDERED: Levofloxacin 750 MG Tab PO SCH (12:15)
[2021-04-01] MEDS: Enoxaparin 40 MG/0.4 ML Syringe SUBCUT SCH (15:13)
[2021-04-01] MEDS: Simvastatin 20 MG Tab PO SCH (20:16)
[2021-04-02] MEDS: Albuterol/Ipratropium 3.0-0.5 MG/3 ML Neb Soln NEB SCH ×4 (09:16→20:43)
[2021-04-02] MEDS: Budesonide 0.5 MG/2 ML Neb Susp NEB SCH ×2 (09:16→20:42)
[2021-04-02] MEDS: REFRESH PLUS EYEBOTH SCH ×2 (09:17→20:42)
[2021-04-02] MEDS: Levofloxacin 750 MG Tab PO SCH (09:18)
[2021-04-02] MEDS: Lisinopril 10 MG Tab PO SCH (09:18)
[2021-04-02] MEDS: guaiFENesin 600 MG Tab.ER PO SCH ×2 (09:18→20:43)
[2021-04-02] MEDS: predniSONE 20 MG Tab PO SCH (09:18)
[2021-04-02] MEDS: Metoprolol Succinate 50 MG Tab.ER PO SCH (09:19)
--- NOTE | 2021-04-02 09:19 | PCM.PN ---
- General Info Date of Service: 04/02/21 Subjective Update: Marleen states she is feeling better than yesterday. Still productive cough but chest not as sore. Her creatinine bumped yesterday so dose of Levofloxacin held. Cr improved today so can go back to daily dosing. No fevers. Oxygen good on her home setting of 2L. No diarrhea. Was up walking in [place] x2 yesterday. - Patient Data Vitals - Most Recent: Last Vital Signs Temp 97.7 F 04/02/21 05:45 Pulse 82 04/02/21 05:45 Resp 20 04/02/21 05:45 BP 124/62 04/02/21 05:45 Pulse Ox 93 L 04/02/21 05:45 Weight - Most Recent: 108 lb 8 oz Lab Results Last 24 Hours: Laboratory Results - last 24 hr 04/02/21 04/02/21 Range/Units 06:35 06:35 WBC 14.1 H (3.0-10.3) x10-3/uL RBC 3.20 L (3.60-5.20) x10(6)uL Hgb 9.0 L (11.4-15.5) g/dL Hct 27.8 L (34.2-48.2) % MCV 86.9 (76.7-100.5) fL MCH 28.2 (23.9-33.9) pg MCHC 32.4 (31.9-34.8) g/dL RDW 14.5 (12.3-16.5) % Plt Count 294 (151-488) x10(3)uL MPV 7.3 (7.1-12.4) fL Neut % (Auto) 75.6 (30.8-76.2) % Lymph % (Auto) 13.4 L (18.4-52.1) % [place] % (Auto) 10.2 (4.4-15.7) % Eos % (Auto) 0.7 (0.6-8.1) % Baso % (Auto) 0.1 L (0.2-1.5) % Neut # (Auto) 10.6 H (1.5-6.3) x10-3/uL Lymph # (Auto) 1.9 (1.0-4.4) x10-3/uL [place] # (Auto) 1.4 H (0.3-1.0) x10-3/uL Eos # (Auto) 0.1 (0.0-0.8) x10-3/uL Baso # (Auto) 0.0 (0.0-0.1) x10-3/uL Sodium 132 L (135-145) mmol/L Potassium 4.5 (3.5-5.3) mmol/L Chloride 98 L (100-110) mmol/L Carbon Dioxide 31 (21-32) mmol/L BUN 11 (7-18) mg/dL Creatinine 0.8 (0.55-1.02) mg/dL Est Cr Clr Drug Dosing 52.29 mL/min Estimated GFR (MDRD) > 60 (>60) BUN/Creatinine Ratio 13.8 (9-20) Glucose 99 (80-116) mg/dL Calcium 8.2 L (8.6-10.2) mg/dL Ramy Results Last 24 Hours: Microbiology 03/28/21 14:55 Aerobic Blood Culture - Preliminary Blood - Venous - Lab Draw NO GROWTH AFTER 4 DAYS Anaerobic Blood Culture - Preliminary NO GROWTH AFTER 4 DAYS 03/28/21 14:50 Aerobic Blood Culture - Preliminary Blood - Venous NO GROWTH AFTER 4 DAYS Anaerobic Blood Culture - Preliminary NO GROWTH AFTER 4 DAYS Med Orders - Current: Current Medications Acetaminophen (Acetaminophen 325 Mg Tab) 650 mg PO Q4H PRN PRN Reason: Pain (Mild 1-3)/fever Last Admin: 04/01/21 05:47 Dose: 650 mg Documented by: Albuterol (Albuterol 8 Gm Inhaler *Ptom*) 0 gm INH Q4H PRN PRN Reason: Shortness of Breath Last Admin: 04/01/21 15:31 Dose: 2 puff Documented by: Albuterol/Ipratropium (Albuterol/Ipratropium 3.0-0.5 Mg/3 Ml Neb Soln) 3 ml NEB QID [facility] Last Admin: 04/01/21 20:09 Dose: 3 ml Documented by: Budesonide (Budesonide 0.5 Mg/2 Ml Neb Susp) 0.5 mg NEB BID [facility] Last Admin: 04/01/21 20:08 Dose: 0.5 mg Documented by: Enoxaparin Sodium (Enoxaparin 40 Mg/0.4 Ml Syringe) 40 mg SUBCUT Q24H [facility] Last Admin: 04/01/21 15:13 Dose: 40 mg Documented by: Guaifenesin (Guaifenesin 600 Mg Tab.Er) 600 mg PO BID [facility] Last Admin: 04/01/21 20:16 Dose: 600 mg Documented by: Hydroxyzine Pamoate (Hydroxyzine Pamoate 50 Mg Cap) 50 mg PO Q6H PRN PRN Reason: Anxiety Ibuprofen (Ibuprofen 400 Mg Tab) 400 mg PO Q6H PRN PRN Reason: Pain/Fever Last Admin: 04/01/21 20:17 Dose: 400 mg Documented by: Levofloxacin (Levofloxacin 750 Mg Tab) 750 mg PO Q24H [facility] Stop: 04/04/21 09:01 Lidocaine (Lidocaine 4% 1 Each Patch) 0 each TOP DAILY PRN PRN Reason: Pain Last Admin: 03/28/21 21:10 Dose: 1 each Documented by: Lisinopril (Lisinopril 10 Mg Tab) 10 mg PO DAILY [facility] Last Admin: 04/01/21 08:09 Dose: 10 mg Documented by: Metoprolol Succinate (Metoprolol Succinate 50 Mg Tab.Er) 50 mg PO DAILY [facility] Last Admin: 04/01/21 08:09 Dose: 50 mg Documented by: Refresh Plus 0.5% 30 (Each *Ptom*) 1 drop EYEBOTH BID [facility] Last Admin: 04/01/21 20:16 Dose: 1 drop Documented by: (Revefenacin [ Yupelri] 175 Mcg)* Pt Own Med* 0 each INH DAILY [facility] Last Admin: 04/01/21 08:04 Dose: 1 each Documented by: Prednisone (Prednisone 20 Mg Tab) 40 mg PO DAILY [facility] Stop: 04/03/21 09:01 Last Admin: 04/01/21 08:03 Dose: 40 mg Documented by: Simvastatin (Simvastatin 20 Mg Tab) 20 mg PO BEDTIME [facility] Last Admin: 04/01/21 20:16 Dose: 20 mg Documented by: Tizanidine HCl (Tizanidine 4 Mg Tab) 4 mg PO Q6H PRN PRN Reason: Muscle Spasm - Painful Last Admin: 03/29/21 14:45 Dose: 4 mg Documented by: Discontinued Medications Albuterol (Albuterol 8 Gm Inhaler *Ptom*) 0 gm INH Q4H PRN PRN Reason: Shortness of Breath Albuterol/Ipratropium (Albuterol/Ipratropium 3.0-0.5 Mg/3 Ml Neb Soln) 3 ml NEB Q4H PRN PRN Reason: Shortness Of Breath/wheezing Levofloxacin/Dextrose 750 mg/ (Premix) 150 mls @ 100 mls/hr IV Q24H [place] Last Admin: 03/31/21 14:34 Dose: 100 mls/hr Documented by: Sodium Chloride (Normal Saline) 1,000 mls @ 75 mls/hr IV ASDIRECTED [place] Last Admin: 03/29/21 07:44 Dose: 75 mls/hr Documented by: Levofloxacin (Levofloxacin 750 Mg Tab) 750 mg PO Q24H [place] Last Admin: 04/01/21 17:54 Dose: Not Given Documented by: Levofloxacin (Levofloxacin 750 Mg Tab) 750 mg PO Q48H [place] Non-Formulary Medication (Revefenacin [Yupelri]) 175 mcg IH BID [place] (Revefenacin [ Yupelri] 175 Mcg)* Pt Own Med* 0 each INH ONETIME ONE Stop: 03/28/21 21:31 Last Admin: 03/28/21 21:11 Dose: 1 each Documented by: Sodium Chloride (Sodium Chloride 0.9% 10 Ml Syringe) 10 ml FLUSH ASDIRECTED PRN PRN Reason: Keep Vein Open Last Admin: 03/31/21 14:35 Dose: 10 ml Documented by: - Exam Quality Assessment: Supplemental Oxygen (2L) General: Alert, Oriented, Cooperative Lungs: Clear to Auscultation, Normal Respiratory Effort, Decreased Breath Sounds (bibasilar), Wheezing (throughout). No: Crackles Cardiovascular: Regular Rate, Regular Rhythm GI/Abdominal Exam: Normal Bowel Sounds, Soft, Non-Tender, No Distention Extremities: No Pedal Edema Peripheral Pulses: 2+: Radial (L), Radial (R) - Patient Data Lab Results Last 24 hrs: Laboratory Results - last 24 hr 04/02/21 04/02/21 Range/Units 06:35 06:35 WBC 14.1 H (3.0-10.3) x10-3/uL RBC 3.20 L (3.60-5.20) x10(6)uL Hgb 9.0 L (11.4-15.5) g/dL Hct 27.8 L (34.2-48.2) % MCV 86.9 (76.7-100.5) fL MCH 28.2 (23.9-33.9) pg MCHC 32.4 (31.9-34.8) g/dL RDW 14.5 (12.3-16.5) % Plt Count 294 (151-488) x10(3)uL MPV 7.3 (7.1-12.4) fL Neut % (Auto) 75.6 (30.8-76.2) % Lymph % (Auto) 13.4 L (18.4-52.1) % [facility] % (Auto) 10.2 (4.4-15.7) % Eos % (Auto) 0.7 (0.6-8.1) % Baso % (Auto) 0.1 L (0.2-1.5) % Neut # (Auto) 10.6 H (1.5-6.3) x10-3/uL Lymph # (Auto) 1.9 (1.0-4.4) x10-3/uL [facility] # (Auto) 1.4 H (0.3-1.0) x10-3/uL Eos # (Auto) 0.1 (0.0-0.8) x10-3/uL Baso # (Auto) 0.0 (0.0-0.1) x10-3/uL Sodium 132 L (135-145) mmol/L Potassium 4.5 (3.5-5.3) mmol/L Chloride 98 L (100-110) mmol/L Carbon Dioxide 31 (21-32) mmol/L BUN 11 (7-18) mg/dL Creatinine 0.8 (0.55-1.02) mg/dL Est Cr Clr Drug Dosing 52.29 mL/min Estimated GFR (MDRD) > 60 (>60) BUN/Creatinine Ratio 13.8 (9-20) Glucose 99 (80-116) mg/dL Calcium 8.2 L (8.6-10.2) mg/dL Result Diagrams: 04/02/21 06:35 04/02/21 06:35 Ramy Results Last 24 hrs: Microbiology 03/28/21 14:55 Aerobic Blood Culture - Preliminary Blood - Venous - Lab Draw NO GROWTH AFTER 4 DAYS Anaerobic Blood Culture - Preliminary NO GROWTH AFTER 4 DAYS 03/28/21 14:50 Aerobic Blood Culture - Preliminary Blood - Venous NO GROWTH AFTER 4 DAYS Anaerobic Blood Culture - Preliminary NO GROWTH AFTER 4 DAYS Sepsis Event Note - Evaluation Sepsis Screening Result: No Definite Risk - Focused Exam Vital Signs: Vital Signs Temp Pulse Resp BP Pulse Ox 04/02/21 05:45 97.7 F 82 20 124/62 93 L - Problem List & Annotations (1) Hospital-acquired pneumonia SNOMED Code(s): 227609183 Code(s): J18.9 - PNEUMONIA, UNSPECIFIED ORGANISM; Y95 - NOSOCOMIAL CONDITION Status: Acute Current Visit: Yes Annotation/Comment:: Recent hospitalization/rehab stay 03/10-03/24 Grew Stenotrophomonas & Pseudomonas both sensitive to Levofloxacin. (2) Hyponatremia SNOMED Code(s): 94728510 Code(s): E87.1 - HYPO-OSMOLALITY AND HYPONATREMIA Status: Acute Current Visit: Yes Annotation/Comment:: Improved to 132. (3) COPD (chronic obstructive pulmonary disease) SNOMED Code(s): 30276923 Code(s): J44.9 - CHRONIC OBSTRUCTIVE PULMONARY DISEASE, UNSPECIFIED Status: Chronic Current Visit: Yes Annotation/Comment:: on home O2 at 2L continuous (4) Hypertension SNOMED Code(s): 06682087 Code(s): I10 - ESSENTIAL (PRIMARY) HYPERTENSION Status: Chronic Current Visit: Yes (5) Dyslipidemia SNOMED Code(s): 361901950 Code(s): E78.5 - HYPERLIPIDEMIA, UNSPECIFIED Status: Chronic Current Visit: Yes (6) Fever SNOMED Code(s): 120387580 Code(s): R50.9 - FEVER, UNSPECIFIED Status: Resolved Current Visit: Yes - Problem List Review Problem List Initiated/Reviewed/Updated: Yes - My Orders Last 24 Hours: My Active Orders 04/01/21 19:16 Discontinue Saline Lock [Peripheral IV Discontinue] [OM.PC] Routine 04/02/21 09:00 levoFLOXacin [Levaquin] 750 mg PO Q24H 04/03/21 06:00 BASIC METABOLIC PANEL,BMP [CHEM] Routine CBC WITH AUTO DIFF [HEME] Routine - Plan Plan:: 1. HAP/fever: WBC 14.1, not able to give Levofloxacin dose yesterday due to her kidney function but improved so can go back to q24 dosing. Her IV infiltrated yesterday so saline lock was discontinued. BC no growth. Sputum: stenotrophomonas & pseudomonas both sensitive to Levofloxacin. Levofloxacin 750 mg IV q24h day 5. Continue home nebs & inhalers. Continue Acapella q1hwa, patient brought her home one with her. Repeat labs tomorrow. Oxygen by nc at 2L continuous. Tylenol & Ibuprofen as needed fever. 2. Hyponatremia: 132, stable. 3. Disposition: anticipate discharge tomorrow with close follow up with Dr Orozco or Deepthi Brown.
[2021-04-02] MEDS ORDERED: Levofloxacin 750 MG Tab PO SCH (13:00)
[2021-04-02] MEDS: Enoxaparin 40 MG/0.4 ML Syringe SUBCUT SCH (16:37)
[2021-04-02] MEDS: Simvastatin 20 MG Tab PO SCH (20:43)
[2021-04-02] MEDS: Ibuprofen 400 MG Tab PO PRN (20:47)
[2021-04-03] MEDS: Albuterol/Ipratropium 3.0-0.5 MG/3 ML Neb Soln NEB SCH ×2 (06:50→10:54)
[2021-04-03] MEDS: Budesonide 0.5 MG/2 ML Neb Susp NEB SCH (06:57)
[2021-04-03 08:03] VITALS: BP 145/71
[2021-04-03] MEDS: REFRESH PLUS EYEBOTH SCH (09:56)
[2021-04-03] MEDS: Levofloxacin 750 MG Tab PO SCH (09:57)
[2021-04-03] MEDS: predniSONE 20 MG Tab PO SCH (09:57)
[2021-04-03] MEDS: guaiFENesin 600 MG Tab.ER PO SCH (09:57)
[2021-04-03] MEDS: Lisinopril 10 MG Tab PO SCH (10:01)
[2021-04-03] MEDS: Metoprolol Succinate 50 MG Tab.ER PO SCH (10:01)
[2021-04-03 10:02] VITALS: PULSE 100
--- NOTE | 2021-04-03 10:19 | PCM.DCSUM1 ---
Discharge Summary - Hospital Course HPI Initial Comments: Marleen presented to [facility] today with Dr Orozco for follow up recent discharge from [facility] rehab(03/16-03/24) after being admitted to [facility](03/10-03/16) for UTI. She was discharged on Friday. When she presented to clinic today she had 101.2F, chills, shortness of breath. History of COPD, on continuous oxygen at home at 2L. Found in clinic to have left upper lobe pneumonia. Covid negative. WBC 27.4, Hgb 10.5. Na 129, K 4.1, Cl 90, CO2 28, BUN 10, Cr 0.7, Glucose 120; UA negative. Urine culture pending. Productive cough with green sputum was clear, uses Acapella device regularly at home. She states chills started today, doesn't have thermometer at home so didn't know she had a fever. Denies any nausea, vomiting, diarrhea. No dysuria, hematuria or frequency. States she has had decreased urination. Doesn't remember when she last had a bowel movement. She has some bruising from blood draws but no other rashes or wounds. CODE STATUS: DNR/DNI. Allergies from clinic aspirin(abdominal pain), patient stated she would like taken off her list as she takes an aspirin 81 mg daily and has not had issues with this. Diagnosis: Stroke: No - Discharge Data Discharge Date: 04/03/21 Discharge Disposition: Home, Self-Care 01 Condition: Good - Referral to Home Health Primary Care Physician: Roxanne Orozco MD - Discharge Diagnosis/Problem(s) (1) Hospital-acquired pneumonia SNOMED Code(s): 493042443 ICD Code: J18.9 - PNEUMONIA, UNSPECIFIED ORGANISM; Y95 - NOSOCOMIAL CONDITION Status: Acute Current Visit: Yes Problem Details: Recent hospitalization/rehab stay 03/10-03/24 Grew Stenotrophomonas & Pseudomonas both sensitive to Levofloxacin. (2) Hyponatremia SNOMED Code(s): 37574324 ICD Code: E87.1 - HYPO-OSMOLALITY AND HYPONATREMIA Status: Acute Current Visit: Yes Problem Details: Improved to 133. (3) COPD (chronic obstructive pulmonary disease) SNOMED Code(s): 94735945 ICD Code: J44.9 - CHRONIC OBSTRUCTIVE PULMONARY DISEASE, UNSPECIFIED Status: Chronic Current Visit: Yes Problem Details: on home O2 at 2L continuous (4) Hypertension SNOMED Code(s): 69157884 ICD Code: I10 - ESSENTIAL (PRIMARY) HYPERTENSION Status: Chronic Current Visit: Yes (5) Dyslipidemia SNOMED Code(s): 113132049 ICD Code: E78.5 - HYPERLIPIDEMIA, UNSPECIFIED Status: Chronic Current Visit: Yes (6) Atrial fibrillation SNOMED Code(s): 46902987 ICD Code: I48.91 - UNSPECIFIED ATRIAL FIBRILLATION Status: Chronic Current Visit: Yes Problem Details: Per clinic chart she is not on anticoagulation due to her HAS-BLED score of 3. (7) Fever SNOMED Code(s): 998489304 ICD Code: R50.9 - FEVER, UNSPECIFIED Status: Resolved Current Visit: Yes - Patient Summary/Data Hospital Course: Admit from clinic, WBC was 27, she was started on Levofloxacin for hospital-acquired(healthcare-acquired) pneumonia with Levofloxacin 750 mg IV q24h. Her WBC trended down 15.5, 13.1, plateaued at 14.2, 14.1 and then today 12.5. She had 4 doses of Levofloxacin IV, Cr went to 0.9 so her CrCl was below 50 so held dose on Friday. Cr improved to 0.8 so CrCl improved over 50 to go back on q24h dosing. Her IV infiltrated on Friday so Friday she got first oral dose, has had 2 doses during stay, 6 doses total will go home with 1 more dose to complete 7 day course. Blood culture had no growth at 5 days. Her sputum culture grew Stenotrophomonas and Pseudomonas both sensitive to Levofloxacin. She was started on Prednisone 40 mg daily x 5 days, her last dose was today. She was also continued on Mucinex 600 mg bid, which helped mobilize secretions. She continued her Acapella device that she brought from home. Her oxygen saturations increased to 98-99%. She had NS initially for Na of 129, it did not change her sodium, had good oral intake so discontinued. Advised to keep her free water intake around 2L and she was eating salty foods like potato chips, her sodium came up to 133 today. She has been afebrile since 03/30. Will see Dr Orozco on Apr 09 at 8am, pt will reschedule to later in the day if needed. - Patient Instructions Diet: Usual Diet as Tolerated Activity: As Tolerated Showering/Bathing: May Shower Notify Provider of: Fever, Increased Pain, Nausea and/or Vomiting Other/Special Instructions: Follow up with Dr Orozco on FriApr 09 at 8am for recheck of your pneumonia. You have 1 more Levofloxacin to take tomorrow to complete your antibiotic course. - Discharge Plan *PRESCRIPTION DRUG MONITORING PROGRAM REVIEWED*: Not Applicable *COPY OF PRESCRIPTION DRUG MONITORING REPORT IN PATIENT RIGO: Not Applicable Prescriptions/Med Rec: levoFLOXacin [Levaquin] 750 mg PO Q24H #1 tablet guaiFENesin [Mucinex] 600 mg PO BID #14 tab.er Home Medications: Home Meds Simvastatin [Zocor] 20 mg PO BEDTIME 12/13/15 [History] Albuterol [Ventolin HFA] 2 puff IH Q4H PRN 03/28/21 [History] Albuterol/Ipratropium [DuoNeb 3.0-0.5 MG/3 ML] 3 ml IH QID 03/28/21 [History] Aspirin [Halfprin] 81 mg PO DAILY 03/28/21 [History] Budesonide [Pulmicort] 0.5 mg IH BID 03/28/21 [History] Calcium Carbonate/Vitamin D3 [Calcium 600-Vit D3 200 Tablet] 1 tab PO DAILY 03/28/21 [History] Carboxymethylcellulose Sodium [Refresh Plus 0.5%] 1 drop EYEBOTH BID 03/28/21 [History] Metoprolol Succinate 50 mg PO DAILY 03/28/21 [History] Multivitamin [Daily Karla] 1 tab PO DAILY 03/28/21 [History] [place]-3 Fatty Acids/Fish Oil [Fish Oil 1,000 mg Capsule] 1 cap PO DAILY 03/28/21 [History] Revefenacin [Yupelri] 175 mcg IH BID 03/28/21 [History] lisinopriL [Lisinopril] 10 mg PO DAILY 03/28/21 [History] guaiFENesin [Mucinex] 600 mg PO BID #14 tab.er 04/03/21 [Rx] levoFLOXacin [Levaquin] 750 mg PO Q24H #1 tablet 04/03/21 [Rx] Oxygen Therapy Mode: Nasal Cannula Oxygen Flow Rate (L/min): 2 (continuous) Patient Handouts: Levofloxacin tablets Referrals: Roxanne Orozco MD [Primary Care Provider] - - Discharge Summary/Plan Comment DC Time >30 min.: No Total # of Minutes for Discharge Time: 20 min - General Info Date of Service: 04/03/21 Subjective Update: Marleen states she is feeling better today. No complaints. She uses Mucinex at home but is out and needs refill. - Patient Data Vitals - Most Recent: Last Vital Signs Temp 97.1 F 04/03/21 08:00 Pulse 100 04/03/21 10:01 Resp 20 04/03/21 08:00 BP 145/71 H 04/03/21 10:01 Pulse Ox 97 04/03/21 08:00 Weight - Most Recent: 108 lb 8 oz Lab Results - Last 24 hrs: Laboratory Results - last 24 hr 04/03/21 04/03/21 Range/Units 06:30 06:30 WBC 12.5 H (3.0-10.3) x10-3/uL RBC 3.11 L (3.60-5.20) x10(6)uL Hgb 9.0 L (11.4-15.5) g/dL Hct 27.2 L (34.2-48.2) % MCV 87.3 (76.7-100.5) fL MCH 28.9 (23.9-33.9) pg MCHC 33.1 (31.9-34.8) g/dL RDW 14.8 (12.3-16.5) % Plt Count 340 (151-488) x10(3)uL MPV 6.8 L (7.1-12.4) fL Add Manual Diff Yes Neutrophils % (Manual) 67 (46-82) % Band Neutrophils % 3 (0-6) % Lymphocytes % (Manual) 22 (13-37) % Monocytes % (Manual) 7 (4-12) % Myelocytes % 1 H (0-0) % Sodium 133 L (135-145) mmol/L Potassium 4.7 (3.5-5.3) mmol/L Chloride 96 L (100-110) mmol/L Carbon Dioxide 31 (21-32) mmol/L BUN 12 (7-18) mg/dL Creatinine 0.8 (0.55-1.02) mg/dL Est Cr Clr Drug Dosing 52.29 mL/min Estimated GFR (MDRD) > 60 (>60) BUN/Creatinine Ratio 15.0 (9-20) Glucose 102 (80-116) mg/dL Calcium 8.2 L (8.6-10.2) mg/dL [facility] Results - Last 24 hrs: Microbiology 03/28/21 14:50 Aerobic Blood Culture - Final Blood - Venous NO GROWTH AFTER 5 DAYS Anaerobic Blood Culture - Final NO GROWTH AFTER 5 DAYS 03/28/21 14:55 Aerobic Blood Culture - Final Blood - Venous - Lab Draw NO GROWTH AFTER 5 DAYS Anaerobic Blood Culture - Final NO GROWTH AFTER 5 DAYS Med Orders - Current: Current Medications Acetaminophen (Acetaminophen 325 Mg Tab) 650 mg PO Q4H PRN PRN Reason: Pain (Mild 1-3)/fever Last Admin: 04/01/21 05:47 Dose: 650 mg Documented by: Albuterol (Albuterol 8 Gm Inhaler *Ptom*) 0 gm INH Q4H PRN PRN Reason: Shortness of Breath Last Admin: 04/01/21 15:31 Dose: 2 puff Documented by: Albuterol/Ipratropium (Albuterol/Ipratropium 3.0-0.5 Mg/3 Ml Neb Soln) 3 ml NEB QIDRT [facility] Last Admin: 04/03/21 06:50 Dose: 3 ml Documented by: Budesonide (Budesonide 0.5 Mg/2 Ml Neb Susp) 0.5 mg NEB BIDRT [facility] Last Admin: 04/03/21 06:57 Dose: 0.5 mg Documented by: Enoxaparin Sodium (Enoxaparin 40 Mg/0.4 Ml Syringe) 40 mg SUBCUT Q24H [facility] Last Admin: 04/02/21 16:37 Dose: 40 mg Documented by: Guaifenesin (Guaifenesin 600 Mg Tab.Er) 600 mg PO BID [facility] Last Admin: 04/03/21 09:57 Dose: 600 mg Documented by: Ibuprofen (Ibuprofen 400 Mg Tab) 400 mg PO Q6H PRN PRN Reason: Pain/Fever Last Admin: 04/02/21 20:47 Dose: 400 mg Documented by: Levofloxacin (Levofloxacin 750 Mg Tab) 750 mg PO Q24H [facility] Stop: 04/04/21 09:01 Last Admin: 04/03/21 09:57 Dose: 750 mg Documented by: Lidocaine (Lidocaine 4% 1 Each Patch) 0 each TOP DAILY PRN PRN Reason: Pain Last Admin: 03/28/21 21:10 Dose: 1 each Documented by: Lisinopril (Lisinopril 10 Mg Tab) 10 mg PO DAILY [facility] Last Admin: 04/03/21 10:01 Dose: 10 mg Documented by: Metoprolol Succinate (Metoprolol Succinate 50 Mg Tab.Er) 50 mg PO DAILY [facility] Last Admin: 04/03/21 10:01 Dose: 50 mg Documented by: Refresh Plus 0.5% 30 (Each *Ptom*) 1 drop EYEBOTH BID [facility] Last Admin: 04/03/21 09:56 Dose: 1 drop Documented by: (Revefenacin [ Yupelri] 175 Mcg)* Pt Own Med* 0 each INH DAILY@0700 [facility] Last Admin: 04/03/21 07:03 Dose: 1 each Documented by: Simvastatin (Simvastatin 20 Mg Tab) 20 mg PO BEDTIME [facility] Last Admin: 04/02/21 20:43 Dose: 20 mg Documented by: Discontinued Medications Albuterol (Albuterol 8 Gm Inhaler *Ptom*) 0 gm INH Q4H PRN PRN Reason: Shortness of Breath Albuterol/Ipratropium (Albuterol/Ipratropium 3.0-0.5 Mg/3 Ml Neb Soln) 3 ml NEB Q4H PRN PRN Reason: Shortness Of Breath/wheezing Albuterol/Ipratropium (Albuterol/Ipratropium 3.0-0.5 Mg/3 Ml Neb Soln) 3 ml NEB QID [facility] Last Admin: 04/02/21 12:45 Dose: 3 ml Documented by: Budesonide (Budesonide 0.5 Mg/2 Ml Neb Susp) 0.5 mg NEB BID [facility] Last Admin: 04/02/21 09:16 Dose: 0.5 mg Documented by: Hydroxyzine Pamoate (Hydroxyzine Pamoate 50 Mg Cap) 50 mg PO Q6H PRN PRN Reason: Anxiety Levofloxacin/Dextrose 750 mg/ (Premix) 150 mls @ 100 mls/hr IV Q24H [facility] Last Admin: 03/31/21 14:34 Dose: 100 mls/hr Documented by: Sodium Chloride (Normal Saline) 1,000 mls @ 75 mls/hr IV ASDIRECTED [place] Last Admin: 03/29/21 07:44 Dose: 75 mls/hr Documented by: Levofloxacin (Levofloxacin 750 Mg Tab) 750 mg PO Q24H [facility] Last Admin: 04/01/21 17:54 Dose: Not Given Documented by: Levofloxacin (Levofloxacin 750 Mg Tab) 750 mg PO Q48H [facility] Non-Formulary Medication (Revefenacin [Yupelri]) 175 mcg IH BID [place] (Revefenacin [ Yupelri] 175 Mcg)* Pt Own Med* 0 each INH DAILY [facility] Last Admin: 04/02/21 09:20 Dose: 1 each Documented by: (Revefenacin [ Yupelri] 175 Mcg)* Pt Own Med* 0 each INH ONETIME ONE Stop: 03/28/21 21:31 Last Admin: 03/28/21 21:11 Dose: 1 each Documented by: Prednisone (Prednisone 20 Mg Tab) 40 mg PO DAILY [facility] Stop: 04/03/21 09:01 Last Admin: 04/03/21 09:57 Dose: 40 mg Documented by: Sodium Chloride (Sodium Chloride 0.9% 10 Ml Syringe) 10 ml FLUSH ASDIRECTED PRN PRN Reason: Keep Vein Open Last Admin: 03/31/21 14:35 Dose: 10 ml Documented by: Tizanidine HCl (Tizanidine 4 Mg Tab) 4 mg PO Q6H PRN PRN Reason: Muscle Spasm - Painful Last Admin: 03/29/21 14:45 Dose: 4 mg Documented by: - Exam Quality Assessment: Reports: Supplemental Oxygen General: Reports: Alert, Oriented, Cooperative, No Acute Distress Lungs: Reports: Clear to Auscultation, Normal Respiratory Effort, Decreased Breath Sounds (bibasilar), Wheezing. Denies: Rhonchi Cardiovascular: Reports: Regular Rate, Irregular Rhythm GI/Abdominal Exam: Normal Bowel Sounds, Soft, Non-Tender, No Distention Extremities: No Pedal Edema
== END 2021-04-03 13:20 | disposition home or self-care (01) | DRG 194 ==
LOC: FB.MS 13:43
PROVIDERS: ADMIT Family Medicine; ATTEND Family Medicine
DX: J18.9 Pneumonia, unspecified organism (principal); E87.1 Hypo-osmolality and hyponatremia; J44.9 Chronic obstructive pulmonary disease, unspecified; Z66 Do not resuscitate; Y95 Nosocomial condition; I10 Essential (primary) hypertension; E78.5 Hyperlipidemia, unspecified; I48.91 Unspecified atrial fibrillation; J15.1 Pneumonia due to Pseudomonas; H54.7 Unspecified visual loss; E78.00 Pure hypercholesterolemia, unspecified; M19.90 Unspecified osteoarthritis, unspecified site; Z98.49 Cataract extraction status, unspecified eye; Z86.19 Personal history of other infectious and parasitic diseases; Z87.891 Personal history of nicotine dependence; Z86.010 Personal history of colon polyps; Z79.82 Long term (current) use of aspirin; Z79.899 Other long term (current) drug therapy
CPT/HCPCS: 36415; 80048; 83605; 85025; 87040; 87070; 87077; 87186; 87205; 87804; 87804-59; 94640; A9270-GY; J1650; J1956; J7030; J7512; J7620-GY

== ENCOUNTER 2025-01-28 13:50 | Inpatient (IN) | payer MEDICARE, OTHER ==
[2025-01-28 15:03] LABS: GLUCOSE,URINE NORMAL (NORMAL); OCCULT BLOOD,URINE LARGE (NEGATIVE)
[2025-01-28 15:04] LABS: APPEARANCE,URINE CLOUDY (CLEAR)
[2025-01-28 15:08] LABS: MEAN PLATELET VOLUME 8.4 fL (7.1-12.4); PLATELET COUNT,PLT 191 x10(3)uL (151-488); RED BLOOD CELL COUNT 3.98 x10(6)uL (3.60-5.20); RED CELL DISTRIBUTION WIDTH 15.4 % (12.3-16.5); WHITE BLOOD CELL COUNT,WBC 18.2 x10-3/uL (3.0-10.3)
[2025-01-28 15:11] LABS: FINE GRANULAR CASTS,URINE OCCASIONAL (NS); SQUAMOUS EPITHELIAL CELLS,UR FEW (NS,R,O)
[2025-01-28 15:14] LABS: A/G RATIO 0.7; ALANINE AMINOTRANSFERASE,ALT 60 U/L (12-36); ASPARTATE AMNIOTRANSFERASE,AST 142 IU/L (5-25); BILIRUBIN TOTAL 0.6 mg/dL (0.1-1.3); BLOOD UREA NITROGEN,BUN 37 mg/dL (7-18); CARBON DIOXIDE,CO2 30 mmol/L (21-32); CHLORIDE,CL 101 mmol/L (100-110); ESTIMATED GFR 23 mL/min (>60); GLUCOSE RANDOM 116 mg/dL (80-116); POTASSIUM,K 3.2 mmol/L (3.5-5.3); PROTEIN TOTAL,TP 6.7 g/dL (6.0-8.0); SODIUM,NA 138 mmol/L (135-145)
[2025-01-28 15:16] LABS: CREATININE 2.2 mg/dL (0.55-1.02)
[2025-01-28 15:30] LABS: BASOPHILS PERCENT MAN 1 % (0-2); LYMPHOCYTES PERCENT MAN 4 % (13-37); MONOCYTES PERCENT MAN 5 % (4-12); SEG NEUTROPHILS PERCENT MAN 90 % (46-82)
[2025-01-28] MEDS: Albuterol 0.083% 2.5 MG/3 ML Neb Soln NEB SCH (23:17)
[2025-01-29] MEDS: Metoprolol Succinate 100 MG Tab.ER PO SCH (06:13)
[2025-01-29 06:17] LABS: MEAN PLATELET VOLUME 8.3 fL (7.1-12.4); PLATELET COUNT,PLT 223 x10(3)uL (151-488); RED BLOOD CELL COUNT 4.56 x10(6)uL (3.60-5.20); RED CELL DISTRIBUTION WIDTH 15.7 % (12.3-16.5); WHITE BLOOD CELL COUNT,WBC 18.6 x10-3/uL (3.0-10.3)
[2025-01-29 06:22] LABS: A/G RATIO 0.7; ALANINE AMINOTRANSFERASE,ALT 70 U/L (12-36); BILIRUBIN TOTAL 0.4 mg/dL (0.1-1.3); BLOOD UREA NITROGEN,BUN 32 mg/dL (7-18); CARBON DIOXIDE,CO2 29 mmol/L (21-32); CHLORIDE,CL 103 mmol/L (100-110); CREATININE 1.9 mg/dL (0.55-1.02); EST CRCL DRUG DOSING (CG) 22.14 mL/min; ESTIMATED GFR 28 mL/min (>60); GLUCOSE RANDOM 83 mg/dL (80-116); PROTEIN TOTAL,TP 7.2 g/dL (6.0-8.0); SODIUM,NA 141 mmol/L (135-145)
[2025-01-29 06:27] LABS: ASPARTATE AMNIOTRANSFERASE,AST 165 IU/L (5-25); POTASSIUM,K 2.5 mmol/L (3.5-5.3)
[2025-01-29 06:38] LABS: LYMPHOCYTES PERCENT MAN 2 % (13-37); MONOCYTES PERCENT MAN 7 % (4-12); SEG NEUTROPHILS PERCENT MAN 91 % (46-82)
[2025-01-29] MEDS: Metoprolol Succinate 100 MG Tab.ER ONE (06:49)
[2025-01-29] MEDS: Revefenacin 175 MCG/3 ML Neb Soln NEB SCH (08:22)
[2025-01-29] MEDS: Budesonide 0.5 MG/2 ML Neb Susp INH SCH (08:22)
[2025-01-29] MEDS: Potassium Chloride 20 MEQ Tab.ER PO ONE ×2 (09:17→14:43)
[2025-01-29] MEDS: Potassium Chloride 20 MEQ in Premix Bag 1 BAG IV ONE (10:52)
[2025-01-29] MEDS: NS + KCl 20mEq/L 1,000 ML IV SCH (12:46)
[2025-01-29 13:42] LABS: A/G RATIO 0.7; ALANINE AMINOTRANSFERASE,ALT 64 U/L (12-36); ASPARTATE AMNIOTRANSFERASE,AST 145 IU/L (5-25); BILIRUBIN TOTAL 0.4 mg/dL (0.1-1.3); BLOOD UREA NITROGEN,BUN 31 mg/dL (7-18); CARBON DIOXIDE,CO2 27 mmol/L (21-32); CHLORIDE,CL 105 mmol/L (100-110); CREATININE 1.9 mg/dL (0.55-1.02); EST CRCL DRUG DOSING (CG) 22.14 mL/min; ESTIMATED GFR 28 mL/min (>60); GLUCOSE RANDOM 92 mg/dL (80-116); PROTEIN TOTAL,TP 6.4 g/dL (6.0-8.0); SODIUM,NA 142 mmol/L (135-145)
[2025-01-29 13:54] LABS: POTASSIUM,K 2.7 mmol/L (3.5-5.3)
[2025-01-29] MEDS ORDERED: Scopalamine 1mg/3day Transdermal Patch TRDERM PRN (16:23)
[2025-01-29] MEDS ORDERED: Morphine Oral Concentrate 20 MG/ML 30 ML Bottle PO PRN (16:45)
[2025-01-29] MEDS ORDERED: LORazepam Conc Solution 2 MG/ML 30 ML Bottle PO PRN (16:45)
[2025-01-30] MEDS: Magnesium Hydroxide 400 MG/5 ML Susp 30 ML Cup PO PRN (18:17)
[2025-01-31 05:06] VITALS: BP 167/73; PULSE 72
== END 2025-01-31 11:30 | disposition hospice, inpatient (51) | DRG 682 ==
LOC: FB.ED 13:50 → FB.MS 17:19
PROVIDERS: ADMIT Family Medicine; ATTEND Family Medicine
DX: R53.1 Weakness (principal); N17.9 Acute kidney failure, unspecified; I21.4 Non-ST elevation (NSTEMI) myocardial infarction; N30.01 Acute cystitis with hematuria; I10 Essential (primary) hypertension; J96.11 Chronic respiratory failure with hypoxia; I16.1 Hypertensive emergency; Z66 Do not resuscitate; Z51.5 Encounter for palliative care; J44.9 Chronic obstructive pulmonary disease, unspecified; R73.03 Prediabetes; E87.6 Hypokalemia; H40.9 Unspecified glaucoma; H54.7 Unspecified visual loss; E78.00 Pure hypercholesterolemia, unspecified; M19.90 Unspecified osteoarthritis, unspecified site; E86.0 Dehydration; E83.52 Hypercalcemia; Z79.52 Long term (current) use of systemic steroids; Z87.891 Personal history of nicotine dependence; Z79.899 Other long term (current) drug therapy; Z79.82 Long term (current) use of aspirin
CPT/HCPCS: 36415; 71045; 80053; 81001; 83605; 84484 ×2; 85025; 93005 ×2; 96361; 96374; 99285; J0696; J7030; 94640; 99223; 99233; 99238; A9270-GY; J1920; J3480; J7677

== ENCOUNTER 2025-01-31 11:43 | Inpatient (IN) | payer OTHER ==
[2025-01-31] MEDS ORDERED: Haloperidol Lactate 2 MG/ML Oral Soln 15 ML Bottle PO PRN (12:08)
[2025-01-31] MEDS ORDERED: Ondansetron 4 MG Tab.DIS PO PRN (12:11)
[2025-02-01] MEDS: Hyoscyamine 0.125 MG Tab.SL PO PRN (05:51)
[2025-02-02 05:58] VITALS: BP 134/72; PULSE 103
== END 2025-02-03 09:40 | disposition expired | DRG 951 ==
LOC: FB.MS 11:43
PROVIDERS: ADMIT Family Medicine; ATTEND Family Medicine
DX: Z51.5 Encounter for palliative care (principal); I21.4 Non-ST elevation (NSTEMI) myocardial infarction; Z66 Do not resuscitate; J44.9 Chronic obstructive pulmonary disease, unspecified; I10 Essential (primary) hypertension; H54.7 Unspecified visual loss; E78.00 Pure hypercholesterolemia, unspecified; M19.90 Unspecified osteoarthritis, unspecified site; Z79.51 Long term (current) use of inhaled steroids; Z79.899 Other long term (current) drug therapy; Z79.82 Long term (current) use of aspirin; Z79.52 Long term (current) use of systemic steroids; Z86.0100 Personal history of colon polyps, unspecified; Z98.49 Cataract extraction status, unspecified eye; Z98.890 Other specified postprocedural states; Z87.891 Personal history of nicotine dependence
CPT/HCPCS: A9270-GY